=== PATIENT | female | born 1960 | race Caucasian/White ===

== ENCOUNTER 2024-11-23 18:39 | Inpatient (IN) | payer OTHER, SELFPAY ==
[2024-11-23] VITALS (24 sets, daily range): BP systolic 137–258; BP diastolic 72–126; BMI 34.6; BMI 33.7
[2024-11-23 11:17] LABS: Hematocrit 47.0 % (37.0-47.0); Hemoglobin 15.1 g/dL (12.0-16.0); INR 0.87; Mean Corp Hgb Conc. 32.1 g/dL (33.0-37.0); Mean Corpuscular Volume 81.5 fL (81.0-99.0); Nucleated Red Blood Cells % 0 %; PT 12.1 Sec (11.4-14.6); Platelet Count 204 10^3/uL (130-400); Red Cell Dist. Width 13.4 % (11.5-14.5)
[2024-11-23 11:18] LABS: APTT 25.3 Sec (23.4-35.0)
[2024-11-23 11:22] LABS: ALT (SGPT) 26 U/L (0-35); AST (SGOT) 25 U/L (14-36); Albumin 4.6 g/dl (3.5-5.0); Alkaline Phosphatase 122 U/L (38-126); Blood Urea Nitrogen 15 mg/dl (7-17); Calcium 9.9 mg/dl (8.4-10.2); Carbon Dioxide 26 mmol/L (22-30); Chloride 105 mmol/L (98-107); Glucose 110 mg/dl (70-99); Potassium 4.6 mmol/L (3.5-5.1); Sodium 138 mmol/L (135-145); Total Protein 7.7 g/dl (6.3-8.2); eGFR > 60.00
[2024-11-23 11:34] LABS: Troponin I 0.014 ng/ml
--- NOTE | 2024-11-23 11:35 | ED.CVA ---
ED Provider Triage
<Marco Headley MD, Resident - Last Filed: 11/23/24 15:50>
-
Patient seen by provider in Triage?: Seen in Triage
History of Present Illness
<Marco Headley MD, Resident - Last Filed: 11/23/24 15:50>
General
Chief Complaint: CVA/TIA Symptoms
Source: patient
Exam Limitations: none
Time Seen by Provider: 11/23/24 11:12
Onset of Stroke Symptoms
Onset of symptoms known: Yes
Date of onset of symptoms: 11/22/24
History of Present Illness
History of Present Illness:
64 Y Female with leg weakness, numbing, tingling that started in her left leg yesterday along with left arm, then spread to right leg today. Unable to ambulate. Associated with 1 episode vomiting today morning. No difficulty in understanding speech
or speech deficits, visual changes, chest pain, fever, chills, abdominal pain, diarrhea, headache. Not on blood thinners. PMH og HLD, HTN, and previous history of an CA.
Past History
<Marco Headley MD, Resident - Last Filed: 11/23/24 15:50>
Past History
ED Past Medical History: None
ED Past Surgical History: None
Social History
Tobacco: Non-smoker
Alcohol: Occasional
Drug: None
Personal:
Living: with family
Review of Systems
<Marco Headley MD, Resident - Last Filed: 11/23/24 15:50>
Review of Systems
All Other Systems: ROS reviewed and negative except as documented in HPI and ROS
Constitutional: Denies weight loss
Cardiac: Denies chest pain, diaphoresis, palpitations or syncope
Phy Exam
<Marco Headley MD, Resident - Last Filed: 11/23/24 15:50>
General Physical Exam
General Presentation: well appearing and no apparent distress
General age: appears stated age
General Skin: warm and dry
General Habitus: obese
General Mental: alert
Cardiovascular Exam
Cardiovascular Exam: regular rate/rhythm, no edema, no gallop, no JVD, no murmur and normal peripheral pulses
Pulmonary Exam
Pulmonary Exam: lungs clear and no respiratory distress
Gastrointestinal Exam
Gastrointestinal Exam: normal bowel sounds, non tender, soft and non distended
Neurological Exam
Neurological Exam: alert, oriented x3, CN II-XII intact, no motor deficits, normal reflexs, no sensory deficits, speech normal and abnormal gait (patient is unable to take 2 steps forward on her own without assistance, 4/5 strength left leg compared
to 5/5 right)
Musculoskeletal Exam
Musculoskeletal Exam: full ROM and other (Tingling on palpation of the bilateral lower extremities )
Course
<Marco Headley MD, Resident - Last Filed: 11/23/24 15:50>
Orders/Labs/Results
Orders:
Orders
11/23/24 10:30
Bedside Glucose- Treatment ONCE
11/23/24 10:36
Cardiovascular Evaluation Urgent
Complete Blood Count/With Diff Urgent
Comprehensive Metabolic Panel Urgent
Ferritin Urgent
Folate Urgent
Free T4 Urgent
Glycohemoglobin (HgbA1c) Urgent
PTT Urgent
Prothrombin Time Urgent
TSH Urgent
Troponin I Urgent
Vitamin B12 Urgent
11/23/24 11:30
Electrocardiogram (*1) Urgent
Reason for Study: TIA/Stroke
EKG- Treatment ONCE
11/23/24 13:11
NEUROLOGY CONSULT Urgent
Consulting Provider: Danny Ellington
Was physician already notified: Yes
COVID-19 Antigen Urgent
Source: Nasal Swab
Influenza A+B Rapid Molecular Urgent
JOSEPH Source: Nasal Swab
Specimen Description:
11/23/24 13:29
CT Head & Neck Angio W/wo IV Routine
Comment:
Reason For Exam: stenosis
11/23/24 13:37
Add On- LAB Routine
Tests Added?: folate, ferritin, TSH, free t4, B12, lipid panel, hg A1C
11/23/24 14:18
Prochlorperazine [Compazine] 10 mg IV NOW STA
Prochlorperazine [Compazine] 10 mg IV Q6HPRN PRN
11/23/24 14:44
Admit/Transfer Patient As Directed
Co-Sign Provider:
Level of Care: Observation services
Assign to:: Telemetry
Physician / Group: Ilda Beckman
Diagnosis: bilateral lower extremity weakness, numbness and tingling in right upper ex
Reason for Telemetry: CVA/TIA
Date to Stop Telemetry: 11/26/24
Time to Stop Telemetry: 11:00
11/23/24 14:45
PRN Pain Medication Management As Directed
May give lesser potent ordered pain med per pt: Yes
preference::
Protocol:: Medication orders for pain may be administered in a
manner that supports deferring to patient preference
when the pt is:
- Requesting an ordered lesser potent pain medication.
Least to most potent pain medications are defined
as: acetaminophen < NSAID < tramadol < opioids
(morphine, oxycodone, hydromorphone).
- Requesting a lesser dose of the same medication IF
ORDERED.
- Requesting a less intrusive route of administration
if both routes are prescribed by the provider (PO <
IV).
11/23/24 14:46
Code Status As Directed
Resuscitation Status: Full Code
11/23/24 14:52
Clopidogrel Bisulfate [Plavix] 300 mg PO NOW STA
11/23/24 15:08
Aspirin Chewable [Low Strength Aspirin] 81 mg PO NOW STA
Clopidogrel Bisulfate [Plavix] 75 mg PO NOW STA
11/23/24 15:21
Aspirin Chewable [Low Strength Aspirin] 243 mg PO NOW STA
11/23/24 15:22
Amlodipine [Norvasc] 5 mg PO NOW STA
11/23/24 15:26
MR Brain W/o & With Contrast Routine
Comment:
Reason For Exam: Sensation change left upper extremity drift
Recent pill cam endoscopy?: No
MR Cervical Spine Without & W Routine
Comment:
Reason For Exam: cervical myelopathy
Recent pill cam endoscopy?: No
11/26/24 11:00
DC Protocol for Telemetry ONCE
Abnormal Lab Results
11/23/24
10:36
RBC 5.77 H 10^6/uL
(4.20-5.40)
MCH 26.2 L pg
(27.0-31.0)
MCHC 32.1 L g/dL
(33.0-37.0)
MPV 13.3 H fL
(7.4-10.4)
Lymphocytes % 18.6 L %
(20.5-51.1)
Glucose 110 H mg/dl
(70-99)
Triglycerides 215 H mg/dl
(10-149)
Total Cholesterol 283 H mg/dl
(50-199)
VLDL Cholesterol, Calc 43 H mg/dl
(0-30)
11/23/24 10:36
11/23/24 10:36
Vital Signs
Initial and Last Documented VS:
Initial Vital Signs
Temp Pulse Resp BP Pulse Ox
97.7 F 70 18 168/110 97
11/23/24 10:23 11/23/24 10:23 11/23/24 10:23 11/23/24 10:23 11/23/24 10:23
Last Documented Vital Signs
Temp Pulse Resp BP Pulse Ox
97.7 F 64 17 181/98 98
11/23/24 10:23 11/23/24 12:15 11/23/24 12:15 11/23/24 12:00 11/23/24 12:15
<Salazar Pérez MD - Last Filed: 11/23/24 14:05>
Orders/Labs/Results
Orders:
Orders
11/23/24 10:30
Bedside Glucose- Treatment ONCE
11/23/24 10:36
Cardiovascular Evaluation Urgent
Complete Blood Count/With Diff Urgent
Comprehensive Metabolic Panel Urgent
Ferritin Urgent
Folate Urgent
Free T4 Urgent
Glycohemoglobin (HgbA1c) Urgent
PTT Urgent
Prothrombin Time Urgent
TSH Urgent
Troponin I Urgent
Vitamin B12 Urgent
11/23/24 11:30
Electrocardiogram (*1) Urgent
Reason for Study: TIA/Stroke
EKG- Treatment ONCE
11/23/24 13:11
NEUROLOGY CONSULT Urgent
Consulting Provider: Danny Ellington
Was physician already notified: Yes
COVID-19 Antigen Urgent
Source: Nasal Swab
Influenza A+B Rapid Molecular Urgent
JOSEPH Source: Nasal Swab
Specimen Description:
11/23/24 13:29
CT Head & Neck Angio W/wo IV Routine
Comment:
Reason For Exam: stenosis
11/23/24 13:37
Add On- LAB Routine
Tests Added?: folate, ferritin, TSH, free t4, B12, lipid panel, hg A1C
11/23/24 14:18
Prochlorperazine [Compazine] 10 mg IV NOW STA
Prochlorperazine [Compazine] 10 mg IV Q6HPRN PRN
11/23/24 14:44
Admit/Transfer Patient As Directed
Co-Sign Provider:
Level of Care: Observation services
Assign to:: Telemetry
Physician / Group: Ilda Beckman
Diagnosis: bilateral lower extremity weakness, numbness and tingling in right upper ex
Reason for Telemetry: CVA/TIA
Date to Stop Telemetry: 11/26/24
Time to Stop Telemetry: 11:00
11/23/24 14:45
PRN Pain Medication Management As Directed
May give lesser potent ordered pain med per pt: Yes
preference::
Protocol:: Medication orders for pain may be administered in a
manner that supports deferring to patient preference
when the pt is:
- Requesting an ordered lesser potent pain medication.
Least to most potent pain medications are defined
as: acetaminophen < NSAID < tramadol < opioids
(morphine, oxycodone, hydromorphone).
- Requesting a lesser dose of the same medication IF
ORDERED.
- Requesting a less intrusive route of administration
if both routes are prescribed by the provider (PO <
IV).
11/23/24 14:46
Code Status As Directed
Resuscitation Status: Full Code
11/23/24 14:52
Clopidogrel Bisulfate [Plavix] 300 mg PO NOW STA
11/23/24 15:08
Aspirin Chewable [Low Strength Aspirin] 81 mg PO NOW STA
Clopidogrel Bisulfate [Plavix] 75 mg PO NOW STA
11/23/24 15:21
Aspirin Chewable [Low Strength Aspirin] 243 mg PO NOW STA
11/23/24 15:22
Amlodipine [Norvasc] 5 mg PO NOW STA
11/23/24 15:26
MR Brain W/o & With Contrast Routine
Comment:
Reason For Exam: Sensation change left upper extremity drift
Recent pill cam endoscopy?: No
MR Cervical Spine Without & W Routine
Comment:
Reason For Exam: cervical myelopathy
Recent pill cam endoscopy?: No
11/26/24 11:00
DC Protocol for Telemetry ONCE
Abnormal Lab Results
11/23/24
10:36
RBC 5.77 H 10^6/uL
(4.20-5.40)
MCH 26.2 L pg
(27.0-31.0)
MCHC 32.1 L g/dL
(33.0-37.0)
MPV 13.3 H fL
(7.4-10.4)
Lymphocytes % 18.6 L %
(20.5-51.1)
Glucose 110 H mg/dl
(70-99)
Triglycerides 215 H mg/dl
(10-149)
Total Cholesterol 283 H mg/dl
(50-199)
VLDL Cholesterol, Calc 43 H mg/dl
(0-30)
11/23/24 10:36
11/23/24 10:36
Vital Signs
Initial and Last Documented VS:
Initial Vital Signs
Temp Pulse Resp BP Pulse Ox
97.7 F 70 18 168/110 97
11/23/24 10:23 11/23/24 10:23 11/23/24 10:23 11/23/24 10:23 11/23/24 10:23
Last Documented Vital Signs
Temp Pulse Resp BP Pulse Ox
97.7 F 64 17 181/98 98
11/23/24 10:23 11/23/24 12:15 11/23/24 12:15 11/23/24 12:00 11/23/24 12:15
<Marco Headley MD, Resident - Last Filed: 11/23/24 15:50>
MDM/Problems Addressed
Differential Diagnosis Includes:
Functional weakness, nutritional deficiency, electrolyte abnormality, transverse myelitis, demyelinating disease
MDM/Problems Addressed:
64 F presents with left upper extremity hand numbness, tingling and B/L lower extremity numbness, tingling, and inability to ambulate. Physical examination benign except neuro exam which shows inability to ambulate more than 2 feet, and
paraesthesia on palpation bilaterally. Vitals show elevated blood pressure of 181/98.
- CMP shows no electrolyte abnormalities
- CBC is unremarkable
- Troponin are normal
- EKG shows normal sinus rhythm
- CTA head/neck pending
- Neuro consulted
- Will admit to hospitalist service for CVA
<Marco Headley MD, Resident - Last Filed: 11/23/24 15:50>
*Pulse Oximetry
SaO2: 97
Oxygen Mode of Delivery: Room air
Patient hypoxic: no
*Critical Care Note
Total Time (30-74mins, 75-104mins- exclusive of procedures): Not Applicable
<Salazar Pérez MD - Last Filed: 11/23/24 14:05>
Patient Management
Discussion with other providers: Hospitalist (Discussed with hospitalist) and Lieutenant/Deputy (Discussed with neurologist)
Escalation/DeEscalation of care consider admission/obs:
Admission indicated
ED Attending Note
<Marco Headley MD, Resident - Last Filed: 11/23/24 15:50>
-
Portions of this chart may have been created with voice recognition software.� Occasional wrong word or��sound alike� substitutions may have occurred due to the inherent limitations of voice recognition software.
<Salazar Pérez MD - Last Filed: 11/23/24 14:05>
ED Attending Note
Patient seen and examined by attending physician: Yes
I performed a history and physical exam of patient and discussed management with resident, I reviewed resident's note and agree with documented findings and plan of care.: Yes
ED Attending Note:
I have seen and evaluated the patient with a [id number] encounter. I have spoken to the resident and involved in the medical history, the physical exam, medical decision making.
Evaluation and management service: agree unless noted differently below.
Results interpretation: agree unless noted differently below.
Focused HPI: 64-year-old female with a past medical history of hypertension (noncompliant with medications for about a month), CAD status post stenting who presents to the emergency department for evaluation of weakness. Patient reports that
symptoms started this past Saturday and have been constant and somewhat progressive since that time. She reports that prior to onset of symptoms she had a 24-hour bout of nausea with a few episodes of vomiting. She says that the next day she woke up
with weakness mainly in the left leg. She says that the next day she felt weakness had extended to the right leg but was still much worse on the left. Over the past 24 hours she has noticed some tingling and weakness in the arms as well also worse
on the left. She was concerned that this could potentially be stroke related and came to the ER for assessment. She has had a headache. She denies any chest pain, palpitations, shortness of breath. She denies any abdominal pain. She has not had
additional vomiting since initial a few episodes. She denies any diarrhea. No other acute complaints noted.
Physical exam: Awake and alert not in distress. Hypertensive but otherwise normal vitals. Cranial nerves are intact 2 through 12. Speech is fluid no dysarthria or aphasia. She does have some weakness on distal left upper extremity strength
testing 4/5; 5/5 strength proximally in the upper extremities and symmetric. On strength testing of the lower extremities she has some very subtle weakness on plantarflexion of the foot on the left 4+/5; 5/5 on the right. Sensory exam objectively
intact. She has no cardiac rubs gallops or murmurs and her lungs are clear bilaterally.
Medical Decision Makin-year-old female presents to the emergency room for evaluation of weakness she says in both legs as well as in the arms but much worse on the left side. Symptoms have been ongoing for the past few days. Here she is
markedly hypertensive in the setting of reported noncompliance with medications. Physical exam as above. She is well outside the window for tenecteplase and there is recent no CVA alert called but will proceed with CT head. Will check labs
including a CBC and a CMP. Check EKG. Discussed with neurology for consultation. Monitor closely reassess after the above.
Discharge Plan
Departure
Patient Disposition: Admit
Date of Disposition: 11/23/24
Time of Disposition: 14:01
Admit to doctor: Arianna
Presentation/result/management discussed w/ accepting MD/DO: Hospitalist
Discharge Problem:
Acute CVA (cerebrovascular accident)
Interventions
Interventions:
*Risk Screen - Suicide Last Done: 11/23/24 10:23
*General Assessment Last Done: 11/23/24 11:26
*Neglect/Abuse Screening Last Done: 11/23/24 11:26
ED- Pulmonary Assessment Last Done: 11/23/24 11:26
ED- Neurological Assessment Last Done: 11/23/24 11:26
ED- Cardiac Assessment Last Done: 11/23/24 11:26
ED Swallowing Screen Last Done: 11/23/24 11:26
--- NOTE | 2024-11-23 13:24 | CON.NEURO ---
Addendum entered and electronically signed by Danny Ellington MD 11/23/24 15:29:
Studies individually reviewed.
I have personally examined the patient. I reviewed and agree with the ATMOSPHERIC PHYSICIST's Note.
My addenda:
Awake, alert, interactive. No acute distress.
Speech intact.
Follows 2-step requests w/o difficulty. No tremor.
Extra-ocular movements grossly intact.
Facial movements full and symmetric. Hearing intact to normal conversational volume.
Normal UE movements bilaterally. Drift in the left upper extremity. Reflexes 3+ in bilateral lower extremities without clonus at ankles
Neck: full ROM.
Chest: no dyspnea
Heart: no JVD
Ext: (-) Clubbing, (-) Cyanosis, (-) Edema
IMPRESSIONS/RECOMMENDATIONS:
Abrupt onset of weakness in left lower extremity then left upper extremity then right lower extremity then sensation change in right hand
Differential diagnosis includes cervical myelopathy, Guillain-Manley syndrome
check MRI of brain with and without
check MRI of cervical spine with and without
Check blood work for potential metabolic causes
rehabilitation evaluations and treatment
Continue combined aspirin and clopidogrel due to the possibility of acute ischemic stroke although unclear
Initiate atorvastatin 80 mg daily in addition to the patient's usual rosuvastatin 40 mg daily due to LDL 179 with goal of less than 70 presuming possibility of ischemic lesion producing symptoms
D/W patient
All questions answered.
Will continue to follow patient.
Original Note:
Documented by User: Heaven Leger NP 11/23/24 15:21
Neuro Assessment/Plan
Assessment
64 year old female with past medical history significant for HTN, HLD, IA presented to [facility] on 11/23/2024 for evaluation of weakness.
CTA head and neck: pending
Labs: Cholesterol 283, LDL 179
Plan
-check MRI brain without contrast to evaluate for stroke
-check MRI cervical spine to check for structural abnormalities
-BP goal is normotension.
-start ASA 81mg and clopidogrel 75 mg daily
-check hemoglobin A1C. Goal is normoglycemia.
-current LDL 179 with goal <70, start atorvastatin 80 mg nightly
-PT/OT evaluations
-DVT prophylaxis
-continue neurochecks and NIHSS per unit guidelines
All questions encouraged and answered, plan of care discussed with Dr. Ellington, hospitalist and patient
Consultation
Order
Date of Consultation: 11/23/24
Requesting Provider: ED
Reason for Consult: b/l LE weakness
Subjective/Objective
Subjective Data
Date of Service: November 23, 2024
64 year old female with past medical history significant for HTN, HLD, IA presented to [facility] on 11/23/2024 for evaluation of weakness. Saturday at 11 am with leg weakness, numbing, tingling that started in her left leg, few hours later started to have
tingling then weakness to left arm, then spread to right leg last night around 10 pm. She states weakness in right leg not as severe as left leg. Also noted tingling in her right hand then weakness this morning mainly in her fingertips. She notes
she was unable to ambulate and ascend stairs this morning. Also noted difficulty with right hand dexterity. Had 1 episode of vomiting on Saturday. Notes headaches once a week, currently has headache with photophobia and nausea. Denies phonophobia.
Denies issues with speech or swallow, visual changes, chest pain, fever, chills, abdominal pain. Denies issues with bowel/bladder. Not on blood thinners. Currently on exam, she has LUE drift and hyperreflexia to upper and lower extremities.
Objective Data
Vital Signs
Temp Pulse Resp BP Pulse Ox
97.7 F 64 17 181/98 98
11/23/24 10:23 11/23/24 12:15 11/23/24 12:15 11/23/24 12:00 11/23/24 12:15
Lab Results
11/23/24 10:36
11/23/24 10:36
PT 12.1 Sec (11.4-14.6) 11/23/24 10:36
INR 0.87 11/23/24 10:36
APTT 25.3 Sec (23.4-35.0) 11/23/24 10:36
Sodium 138 mmol/L (135-145) 11/23/24 10:36
Potassium 4.6 mmol/L (3.5-5.1) 11/23/24 10:36
BUN 15 mg/dl (7-17) 11/23/24 10:36
Glucose 110 mg/dl (70-99) H 11/23/24 10:36
Calcium 9.9 mg/dl (8.4-10.2) 11/23/24 10:36
Patient Allergies
No Known Allergies Allergy (Verified 11/23/24 10:22)
CVA Assessment
Onset of Stroke Symptoms
Onset of symptoms known: Yes
Date of onset of symptoms: 11/22/24
Time of onset of symptoms: 11:00
Time pt last seen normal is known: No
NIH Stroke Score
Level of Consciousness: 0 - Alert
LOC Questions: 0-Answers both correctly
LOC Commands: 0-Performs both correctly
Best Horizontal Gaze: 0-Normal
Visual Scott: 0=Normal, no visual loss
Facial Palsy: 0=Normal, symmetrical
Motor - Right Arm: 0=No drift 10 seconds
Motor - Left Arm: 1=Drift < 10 seconds
Motor - Right Le-No drift 5 seconds
Motor - Left Le-No drift 5 seconds
Limb Ataxia: 0-Absent
Sensation: 0-Normal
Best Language: 0-No aphasia
Dysarthria: 0-Normal
Extinction and Inattention: 0-No abnormality
NIH Total Score:: 1
Tenecteplase Contraindications
Inclusion and Exclusion criteria reviewed: Yes
Reasons for NON-Tx with Thrombolytics ABSOLUTE Exclusions: Time-out of window
IAT Contraindications: >6 hrs from onset/last seen normal and NIHSS < 6
Modified [place] Score (MRS)
-
Modified Ghanshyam Scale (mRS): Moderately severe disability. Unable to attend to bodily needs/walk.
Score: 4
Physical Exam
-
General: No Apparent Distress and Comfortable
Eyes: No Ptosis and PERRLA
HEENT: Normocephalic, Atraumatic and Anicteric
Neck: Full Range of Motion
Respiratory: No Dyspnea
Cardiac: No JVD
GI: Non-distended
Skin: Unremarkable
Extremities: No Clubbing, No Cyanosis and No Edema
Psych: Unremarkable
Extended Neurological Exam
Mood & Affect: Mood Unremarkable
Attention Span & Concentration: Awake, Alert, Interactive and No Difficulty with 2 Step Request
Memory: Unremarkable
Tremor: Hand Tremor Absent and Head Tremor Absent
Speech: Quality Unremarkable, Quantity Unremarkable and Rate of Production Unremarkable
Cranial Nerve II: Left Eye: Visual Scott Intact
Cranial Nerve II: Right Eye: Visual Scott Intact
Cranial Nerves III, IV, : Extraocular Movement: Extraocular Movement Full in all Directions
Cranial Nerve V: Facial Sensation: Facial Sensation Unremarkable to Cold
Cranial Nerve VII: Facial Symmetry: Normal Facial Symmetry
Cranial Nerve VIII: Hearing: Unremarkable Hearing to Normal Conversational Volume
Cranial Nerve XI: Shoulder Shrug: Unremarkable
Muscle Strength, Overall: Reduced (4/5 to RUE, proximal weakness to b/l LEs)
Pronator Drift: Drift in Left Upper Extremity and No Drift in Lower Extremities
Deep Tendon Reflexes: Other (RUE/RLE hyperreflexic, LLE crossing)
Vibration Sensation: Unremarkable
Coordination: [id number] Testing Unremarkable and Reaches for Objects without Difficulty
Past History
Past History
ED Past Medical History: None
ED Past Surgical History: None
Family/Social History
Tobacco: Non-smoker
Alcohol: Occasional
Drug: None
Personal:
Living: with family

Documented by User: Marco Headley MD, Resident 11/23/24 15:08
CVA Assessment
NIH Stroke Score
NIH Total Score:: 1
Modified Ghanshyam Score (MRS)
-
Score: 4

Documented by User: Danny Ellington MD 11/23/24 15:21
CVA Assessment
NIH Stroke Score
NIH Total Score:: 1
Modified [place] Score (MRS)
-
Score: 4
[2024-11-23 13:55] LABS: COVID-19 Antigen Negative (Negative)
--- NOTE | 2024-11-23 14:03 | HPS.HSE ---
Addendum entered and electronically signed by Ilda Beckman MD 11/23/24 16:53:
I saw and examined the patient.
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
Comment:
64F HLD, HTN CAD presents for eval b/l LE weakness. Reports headache starting a few days ago followed by new onset left leg and arm weakness day prior to presentation. She was prompted to visit ED next day when she woke to bilateral lower
extremity weakness and in ability to stand without assistance. Weakness is associated with numbness and tingling in the RUE/hand. Denies ever having symptoms like this before. Reports non-compliance with her home medications, including
antihypertensives- reportedly running out of meds a few months ago. CT/CTA head/neck noted no significant acute abn's. ED eval noted hypertension systolic 180s, afebrile, stable respiratory status on room air. Labs also noted Hyperlipidemia and
low normal B12 level.
Physical Exam
General: No pallor, cyanosis, or jaundice.
HEENT: Throat clear. PERRLA Normocephalic atraumatic
NECK: Supple. No JVD Carotid Bruits
RESPIRATORY: Lungs clear to auscultation. No crackles wheezes stridor
CVS: S1, S2 normal. RRR. No murmur, rub or gallop.
ABDOMEN: Soft, non-tender. No distension. BS+/normal.
EXTREMITIES: No peripheral cyanosis or edema.
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 able to move all ext's spontaneously.
#Possible Stroke, out of window for TPA
#Hypertensive Urgency
#Low Normal B12 Level
#Neuropathy
Monitor on Telemetry
Neuro Eval Appreciated check brain/neck MRI
ASA Plavix statin
goal normotension but given likely longstanding hypertension/noncompliance, avoid correcting too fast
home antihypertensives resumed at reduced doses Amlodipine 5 mg daily Lisinopril 10 mg daily with holding parameters, Metoprolol XL 25 mg BID w/ holding parameters
PT/OT
IV Hydralazine prn SBP>140 or DBP>100
Original Note:
Family Physician
-
Family Physician: Macario Rg
Chief Complaint
-
bilateral lower extremity weakness
History of Present Illness
Patient is a 64-year-old female with past medical history significant for hyperlipidemia, hypertension and CAD who presented to [facility] ED for evaluation of bilateral lower extremity weakness. Patient reports that Saturday afternoon she began with a
headache that has been intermittent ever since, yesterday Saturday11/22/2024 she reported left leg weakness and left arm weakness and heavy feeling. She stated she compensated yesterdays weakness on the left by using more of her right side. She woke
this AM and had bilateral lower extremity weakness and in ability to stand without assistance. She states this weakness is associated with numbness and tingling in the right upper extremity and hand and mild nausea. Denies any recent travel, fever,
chills, cough, shortness of breath, chest pain, palpitations, vomiting, constipation, dairrhea or urinary symptoms.
Medical History
Past Medical History
Past Medical History: Reports Other
Additional Past Medical History:
hypertension
hyperlipidemia
CAD
Past Surgical History: Reports Other
Additional Past Surgical History:
cardiac cath with stent placement
Social History
Tobacco: Non-smoker
Alcohol: Occasional (rare)
Drug: None
Personal: Partner
Living: With Roomate (with boyfriend )
Family History
Family History: Other (Mother: ALS )
Allergies / Home Medications
Allergies reflects when Allergies were last updated in [employer].
Home Medications with original date entered in [employer]
Allergy/Medication List:
Allergies
Allergy/AdvReac Type Severity Reaction Status Date / Time
No Known Allergies Allergy Verified 11/23/24 10:22
Home Medications
aspirin 81 mg tablet,delayed release 81 mg PO DAILY 11/23/24
Review of Systems
-
History Source: Patient
Constitutional: Denies Fever or Chills
EENT: Denies Sore Throat or Runny Nose
Respiratory: Denies Cough, Hemoptysis or Trouble Breathing
Cardiac: Denies Chest Pain, Diaphoresis, Palpitations or Syncope
Abdomen/GI: Reports Nausea; Denies Abdominal Pain, Vomiting, Diarrhea or Constipated
: Denies Dysuria, Frequency or Urgency
Musculoskeletal: Denies Joint Pain or Joint Swelling
Skin: Denies Rash
Neurological: Reports Headache (intermittent since Saturday), Weakness (bilateral lower extremities currently ) and Numbness (currently in right upper extremity ); Denies Dizzy
Physical Exam
Vital Signs
Vital Signs
Temp Pulse Resp BP Pulse Ox
97.7 F 64 17 181/98 98
11/23/24 10:23 11/23/24 12:15 11/23/24 12:15 11/23/24 12:00 11/23/24 12:15
Physical Exam
General: Well Developed, Well Nourished, Comfortable, Conversant and Obese
HEENT: NormoCephalic, Moist mucous membranes, Atraumatic, PERRLA, [place] Conjunctivae, Nose Appears Normal and Ears Appear Normal
Respiratory: Clear and Non Labored Respirations; No Wheezes, Rales or Rhonchi
Cardiac: S1/S2 and Regular Rhythm; No Murmur, Rub or Gallop
Breast: Deferred by me
GI: Soft, Non Tender, Non Distended and Normal Bowel Sounds; No Organomegaly
Rectal: Deferred by Provider
Genito-urinary: Deferred by me
Musculoskeletal: No Clubbing, No Cyanosis and No Edema
Skin: Warm and IV/Catheter Site; No Rash
Neuro: Awake, AO x 3 and Nonfocal/grossly intact; No Facial Droop or Tremors
Hematologic/Lymphatic: No Lymphadenopathy
Psych: Intact Judgment/Insight and Anxious
Laboratory Results
-
11/23/24 10:36
11/23/24 10:36
Laboratory Results
PT 12.1 Sec (11.4-14.6) 11/23/24 10:36
INR 0.87 11/23/24 10:36
APTT 25.3 Sec (23.4-35.0) 11/23/24 10:36
Total Bilirubin 0.6 mg/dl (0.2-1.3) 11/23/24 10:36
AST 25 U/L (14-36) 11/23/24 10:36
ALT 26 U/L (0-35) 11/23/24 10:36
Alkaline Phosphatase 122 U/L (38-126) 11/23/24 10:36
Troponin I 0.014 ng/ml 11/23/24 10:36
Data Reviewed
-
Medical Tests (Nuc Med, Echo, EKG etc): Report Reviewed by me (EKG: NORMAL SINUS RHYTHM MINIMAL VOLTAGE CRITERIA FOR LVH, MAY BE NORMAL VARIANT ( Julien product ) NONSPECIFIC T WAVE ABNORMALITY)
Lab Data: Labs Reviewed by me
Impression/Plan
-
IMPRESSION/PLAN:
#bilateral lower extremity weakness, numbness and tingling in right upper extremity 2/2 CVA/TIA vs. demyelinating disease vs. trauma vs. electrolyte abnormalities
EKG: NORMAL SINUS RHYTHM
MINIMAL VOLTAGE CRITERIA FOR LVH, MAY BE NORMAL VARIANT ( Julien product )
NONSPECIFIC T WAVE ABNORMALITY
Head/Neck CTA: pending
- Admit to telemetry
- Consult Neurology
- MRI brain and neck per neurology
- NIH and neuro checks per protocol
- Start aspirin and Plavix
- PRN hydralazine with goal of normotensive
#hypertension
#hyperlipidemia
#CAD
*patient reports running out of medications for hyperlipidemia, hypertension and a anticoagulant approximately 30-60 days ago, called primary team today to request refills. Pharmacy attempting to confirm what previous regimen was.*
Code status: full code
DVT Prophylaxis: SCDs
[2024-11-23 14:20] LABS: HDL Cholesterol 61 mg/dl; LDL Cholesterol, Calculated 179 mg/dl; Very Low Density Lipoprotein 43 mg/dl (0-30)
[2024-11-23 14:54] LABS: TSH 1.27 uIU/ml (0.47-4.68)
[2024-11-23 14:55] LABS: Ferritin 71.0 ng/ml (11.1-264.0)
[2024-11-23] MEDS: COMPAZINE 10 MG IV ×2 (14:59→17:49)
[2024-11-23 15:27] LABS: Folate 13.7 ng/ml (2.76-20); Vitamin B12 368 pg/ml (239-931)
[2024-11-23] MEDS: NORVASC 5 MG PO (15:37)
[2024-11-23] MEDS: LOW STRENGTH ASPIRIN 243 MG PO (15:37)
[2024-11-23] MEDS: PLAVIX 300 MG PO (15:37)
[2024-11-23] MEDS: APRESOLINE 5 MG IV (17:32)
[2024-11-23] MEDS: LIPITOR 80 MG PO (17:35)
[2024-11-23 17:58] LABS: Glucose - Point of Care 99 mg/dl (70-99)
[2024-11-23] MEDS: TYLENOL 1000 MG PO (18:34)
[2024-11-23] MEDS: ZESTRIL 10 MG PO (18:41)
--- NOTE | 2024-11-23 18:41 | W.PN.UPDATE ---
Update Note
Progress Note Update
Patient hypertensive systolic 200s diastolic 100s unable to get comfortable
reporting chest discomfort/palpitations despite regular heart rate. EKG NSR, troponin pending
reports lower ext cramping/muscle spasms, RLE pain. Started baclofen 2.5 mg TID
possible adverse rxn IV hydralazine, discontinued in favor of prn IV labetalol
Home lisinopril restarted at reduced dose 10 mg daily now
Transferring to ICU d/t concern hypertensive emergency, cardene gtt ordered for goal BP<180/105
[2024-11-23 18:45] LABS: Troponin I 0.016 ng/ml
[2024-11-23] MEDS: TRANDATE 10 MG IV (19:16)
[2024-11-23] MEDS: LIORESAL 2.5 MG PO ×2 (19:16→21:19)
--- NOTE | 2024-11-23 19:35 | PTCARENOTE ---
Rec'd pt from floor RN via stretcher, [facility] completed w/ floor RN- result NIH-1 , has left arm weakness, c/o left hand, left foot & R finger numbness/ tingling;oriented x3, oriented to ICU routine, CHG bath done on adm, SR, cardene gtt started at 193
at 2.5 mg, to keep BP< 1808/105- see flow sheet for titrations, weak distal pulses, no edema, skin warm/dry, c/o left leg cramps/spasms- Gerri Figueredo NP aware, 2 mg leela IV given at 2014- w/ partial relief, RA, lungs clear, sat 96, + bowel sounds, no
bm, abd obese, soft, no n/v, mary grace fluids, purewick in place=- voided yellow urine
[2024-11-23] MEDS: CARDENE 200 IV (19:38)
--- NOTE | 2024-11-23 19:55 | PTCARENOTE ---
Pt received from ER at approx 1645. Ambulated to bed from stretcher, unsteady gait. Tele in place - SR in 60s-70s. BP upon admission 223/123. PRN hydralazine adminsitered. NIH conducted - scored 2 for L arm weakness and L arm ataxia. Pt
warm/sweating but afebrile. Rectal 97.8. Pt c/o feeling of heart racing and like she's having a heart attack. EKG done - SR in 60s. BP remains high in 200s/100s. TT to Dr. Beckman who came to room immediately. Trop and BNP drawn. Tylenol and Baclofen
ordered for c/o L leg spasms. BP still remaining high despite lisinopril. Ordered cardene gtt and transfer to ICU. Pt transferred at 1930, report given to receiving nurse, JEFFERY done bedside. All personal belongings intact.
[2024-11-23] MEDS: TOPROL XL 25 MG PO (20:11)
[2024-11-23] MEDS: VALIUM INJECTION 2 MG IV (20:16)
[2024-11-23 20:17] LABS: Magnesium 1.9 mg/dl (1.6-2.3)
[2024-11-23 20:59] LABS: Urine Character Clear (Clear)
[2024-11-23 21:05] LABS: Urine Squamous Cell >30 /LPF (Few)
[2024-11-23 21:06] LABS: Urine Red Blood Cell 0-2 /HPF (0-2)
[2024-11-23 21:10] LABS: Glucose - Point of Care 137 mg/dl (70-99)
[2024-11-23] MEDS: MAGNESIUM OXIDE 400 MG PO (22:01)
--- NOTE | 2024-11-23 22:02 | PTCARENOTE ---
400 mg mag oxide po given as ordered
[2024-11-24] VITALS (66 sets, daily range): BP systolic 110–193; BP diastolic 71–138; PULSE 95; O2SAT 96; BMI 33.5
--- NOTE | 2024-11-24 00:20 | PTCARENOTE ---
sys reviewed, changes noted
[2024-11-24] MEDS: TRANDATE 10 MG IV (00:54)
--- NOTE | 2024-11-24 00:55 | PTCARENOTE ---
llabetolol 10 mg iv given for bp
[2024-11-24 03:08] LABS: Hematocrit 45.3 % (37.0-47.0); Hemoglobin 14.9 g/dL (12.0-16.0); Mean Corp Hgb Conc. 32.9 g/dL (33.0-37.0); Mean Corpuscular Volume 79.1 fL (81.0-99.0); Platelet Count 212 10^3/uL (130-400); Red Cell Dist. Width 13.5 % (11.5-14.5)
[2024-11-24 03:23] LABS: Blood Urea Nitrogen 14 mg/dl (7-17); Calcium 10.1 mg/dl (8.4-10.2); Carbon Dioxide 22 mmol/L (22-30); Chloride 106 mmol/L (98-107); Estimated Creatinine Clearance 87 ml/min; Glucose 137 mg/dl (70-99); Magnesium 2.2 mg/dl (1.6-2.3); Potassium 4.3 mmol/L (3.5-5.1); Sodium 139 mmol/L (135-145); eGFR > 60.00
--- NOTE | 2024-11-24 03:28 | PTCARENOTE ---
sys reviewed, no numbness /tingling of feet / fingers or hands, no leg cramps
[2024-11-24 03:35] LABS: Troponin I 0.016 ng/ml
[2024-11-24] MEDS: CARDENE 200 IV (04:54)
--- NOTE | 2024-11-24 08:00 | PTCARENOTE ---
Assumed care of pt at 0715 following shift report. Pt awake and sitting up in bed. Ox3, following commands and all conversation appropraite. Denies c/o pain, SOB, nausea. NIHSS assessment completed w/ outgoing shift RN- see work list documentation.
Cardene gtt infusing at 5mg/hr to maintain BP < 180/105. Assisted in ordering breakfast. Call gale w/in pt reach and safe environment maintained.
[2024-11-24] MEDS: NORVASC 5 MG PO (08:02)
[2024-11-24] MEDS: LIORESAL 2.5 MG PO ×3 (08:03→21:57)
[2024-11-24] MEDS: PLAVIX 75 MG PO (08:03)
[2024-11-24] MEDS: TOPROL XL 25 MG PO (08:03)
[2024-11-24] MEDS: ASPIR LOW (ENTERIC COATED) 81 MG PO (08:03)
[2024-11-24] MEDS: VITAMIN B-12 1000 MCG PO (08:03)
[2024-11-24] MEDS: ZESTRIL 10 MG PO ×2 (08:03→11:49)
--- NOTE | 2024-11-24 08:15 | W.PN.HOSP.TC ---
Today's Communication/Plan
-
wean cardene gtt as tolerated, possible downgrade later today if able to wean off
Brain and Neck MRI as per Neuro
asa plavix
blood pressure control, amlodipine titrated back up to 10 mg daily
Cardio eval requested
Assessment / Plan
Assessment / Plan
Physical Exam
General: No pallor, cyanosis, or jaundice.
HEENT: Throat clear. PERRLA Normocephalic atraumatic
NECK: Supple. No JVD Carotid Bruits
RESPIRATORY: Lungs clear to auscultation. No crackles wheezes stridor
CVS: S1, S2 normal. RRR. No murmur, rub or gallop.
ABDOMEN: Soft, non-tender. No distension. BS+/normal.
EXTREMITIES: No peripheral cyanosis or edema.
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 able to move all ext's spontaneously. 4/5 strength Lt ext's 5/5 strength Rt ext's
64F HLD, HTN CAD presents for eval b/l LE weakness. Reports headache starting a few days ago followed by new onset left leg and arm weakness day prior to presentation. She was prompted to visit ED next day when she woke to bilateral lower
extremity weakness and in ability to stand without assistance. Weakness is associated with numbness and tingling in the RUE/hand. Denies ever having symptoms like this before. Reports non-compliance with her home medications, including
antihypertensives- reportedly running out of meds a few months ago. CT/CTA head/neck noted no significant acute abn's. ED eval noted hypertension systolic 180s, afebrile, stable respiratory status on room air. Labs also noted Hyperlipidemia and
low normal B12 level. Following admission, patient was soon transferred to ICU due to concerns Hypertensive emergency systolic 200s, since improved with Cardene gtt.
#Left sided weakness, lower ext weakness Left>Right, paraesthesia lower ext's, muscle cramping
#Eval for Possible CVA
#Hypertensive Emergency
#Hx CAD stent
#noncompliance off medications for past few months
Head/Neck CTA: appreciated no acute abn's
- Admitted to telemetry soon transferred to ICU d/t concerns hypertensive emergency
- BP improved on Cardene gtt, wean off as toelrated
- Consult Neurology appreciated
- pending MRI brain and neck
- NIH and neuro checks per protocol
- loaded with aspirin and Plavix, cont daily maintenance doses
- PRN hydralazine discontinued in favor of prn Labetalol (concern patient felt worse after IV hydralazine)
- Ambulette Driver eval appreciated
- Cardio eval requested
#hypertension
resumed at reduced dose home Amlodipine 5 mg daily and lisinopril 10 mg daily w/ holding parameters
reduced doses to avoid overcorrection likely longstanding uncontrolled HTN
Amlodipine titrated back up to home dose 10 mg daily
Cardene gtt and Cardio eval as above
#hyperlipidemia
#CAD stent placed 2016 as per patient
ASA Plavix as above
statin
Code status: full code
DVT Prophylaxis: SCDs
Total Critical Care Time_45__ minutes. I was immediately available to the patient and staff. I personally examined, reviewed labs, diagnostic images/reports, interpretations, treatment plans, discussed patient care with other providers and
patient, entered orders as appropriate and documented the medical record.
Anticipated Discharge: > 48 hours
Subjective/Interval History
-
Date of Service: November 24, 2024
Seen and examined at bedside in no acute distress resting comfortably in bed. Reports feeling significantly better this morning, denies current pain/discomfort. Left side continues to feel week.
Objective Data
-
Labs:
Laboratory Results
11/24/24
02:48
WBC 11.0 H
Hgb 14.9
Hct 45.3
Plt Count 212
Sodium 139
Potassium 4.3
Chloride 106
Carbon Dioxide 22
BUN 14
Creatinine 0.7
Glucose 137 H
Calcium 10.1
Vital Signs:
Vital Signs
Temp Pulse Resp BP Pulse Ox
98.1 F 87 18 148/97 94
11/24/24 03:12 11/24/24 08:02 11/24/24 06:30 11/24/24 08:03 11/24/24 06:30
I&O
11/23/24 11/24/24 11/25/24
06:59 06:59 06:59
Intake Total 300.0 / 325.0 50 / 50
Output Total 900 / 1150 250 / 250
Balance -600.0 / -825.0 -200 / -200
--- NOTE | 2024-11-24 08:36 | CON.INTV ---
Consultation
Consultation Request
Date/Time Consultation Requested: 11/23/24 18:57
Date/Time Consultation Performed: 11/24/24 08:00
Requesting Provider: Ilda Beckman MD
Performing Provider: Evgeny Villarreal DO (Resident); Shmuel Menard MD
Reason for Consultation: Hypertensive Emergency
Medical History
-
Chief Complaint: Focal Neurologic Weakness
History of Present Illness:
Erika Bill is a 64F w/ PMHx of HLD, HTN, CAD (s/p stent in 2016), family hx of ALS, and medication noncompliance x 2 months who presented to the emergency department yesterday with weakness. Patient states that the history of present illness
started with intermittent headache that started 4 days ago and a 24-hour bout of nausea and NBNB vomiting. Intermittent headache continued but the vomiting resolved. 2 days ago, patient was walking around a flea market with her friend when
discharge noticed that her left lower extremity started become weak. Patient stated the weakness caused her to have difficulty to walk so she returned home. She did not take any medications for the symptoms. Around same time, patient also
worsened noticed tingling in her left upper extremity. She did not seek medical attention and went to bed. Yesterday morning, patient noticed that she now had bilateral upper extremity tingling (left worse than right) and bilateral lower extremity
weakness (left worse than right). Mild intermittent headaches at the base of the occiput continued through this time period. Of note, patient mentions that she has not taken her prescription medications for the last 2 months. These include
amlodipine, lisinopril, rosuvastatin, low-dose aspirin, and metoprolol. Otherwise, she denies fevers, chills, cough, shortness of breath, chest pain, palpitations, urinary symptoms.
ED COURSE: Upon arrival to the emergency department patient was markedly hypertensive and exhibited an abnormal gait. She seemed to have 4/5 left lower extremity strength. CBC was unremarkable, CMP was unremarkable, and troponin was negative X1.
Her tox cream was positive for methamphetamines and marijuana. Head/neck CTA was negative for intracranial pathology, or large vessel occlusion, dissection, or stenosis. Additionally, she was seen by neurology in the emergency department and given
possibility of acute ischemic stroke, patient was started on DAPT/statin and MRI imaging of the brain and cervical spine were ordered.
HOSPITAL COURSE: Patient admitted for neurochecks and treatment of hypertension. Her home antihypertensives were restarted at reduced doses (amlodipine 5 mg daily, lisinopril 10 mg daily, metoprolol 25 mg twice daily) wirh as needed IV hydralazine.
Last evening, BP was markedly elevated with SBP's in the 200s and diastolics in the 100s. Patient was experiencing subjective chest discomfort and palpitations with lower extremity cramps and spasms. EKG was NSR and repeat troponins were negative
x 2. Patient was transferred to the emergency department for IV Cardene in the setting of hypertensive emergency.
Patient states that she feels better this morning. She notes that she has clammy skin however notes improvement in the tingling in her arms. She does not know about her lower extremity weakness because she has not been up and walking. She denies
any chest pain, shortness of breath, palpitations, changes in urination, visual changes. She does note a lingering mild headache in the base of the occiput.
Allergies / Home Medications
Allergies
Allergy/AdvReac Type Severity Reaction Status Date / Time
No Known Allergies Allergy Verified 11/23/24 10:22
Home Medications
�Medication �Instructions �Recorded �Confirmed �Last Taken �Type
amlodipine 10 mg tablet 10 mg PO DAILY Blood Pressure 11/23/24 11/23/24 Unknown History
aspirin 81 mg tablet,delayed 81 mg PO DAILY Blood Clot 11/23/24 11/23/24 11/23/24 History
release Prevention/Tx
clopidogrel 75 mg tablet (Plavix) 75 mg PO DAILY Blood Clot 11/23/24 11/23/24 Unknown History
Prevention/Tx
lisinopril 20 mg tablet 20 mg PO DAILY Blood Pressure 11/23/24 11/23/24 Unknown History
metoprolol succinate 25 mg 25 mg PO BID Blood Pressure 11/23/24 11/23/24 Unknown History
tablet,extended release 24 hr
(Toprol XL)
rosuvastatin 40 mg tablet (Crestor) 40 mg PO DAILY High Cholesterol 11/23/24 11/23/24 Unknown History
Review of Systems
-
History Source: Patient
All other systems: Negative unless noted
Vitals / Labs / Diagnostic Testing
Vital Signs
Temp Pulse Resp BP Pulse Ox
97.9 F 81 18 165/92 95
11/24/24 08:25 11/24/24 08:15 11/24/24 08:15 11/24/24 08:15 11/24/24 08:15
Lab Data
11/24/24 02:48
11/24/24 02:48
Laboratory Results
11/23/24
10:36
PT 12.1
INR 0.87
APTT 25.3
Microbiology
11/23/24 13:11 Nasal Swab Influenza Types A & B (CLOTILDE) - Final
Negative for Influenza A & B, NAAT
Negative results must be combined with clinical observations
and patient history.
Nucleic Acid Amplification test (NAAT)performed on the
[employer] platform.
Diagnostic Testing:
CTA HEAD/NECK (11/23):
1. No acute intracranial abnormality.
2. No large vessel occlusion or dissection. No aneurysm appreciated.
3. Mild to moderate calcified plaque within both carotid bulbs and proximal ICAs. No significant stenosis.
CXR 11/23
No acute cardiopulmonary process.
Physical Exam
-
HEENT: Normocephalic and Anicteric
Cardiovascular: S1/S2, Regular Rhythm and Other (no m/r/g, no carotid bruit, no lower extremity edema, no calf tenderness)
Respiratory: Clear, Non-Labored Respirations and Other (no wheezing, no rales, no rhonchi)
Neurology: Awake, Alert, AO x 3 and Other (4/5 muscle strength in the upper and lower extremity, speech is normal, no facial droop, CN2-12 grossly intact)
Skin: Other (clammy)
General: Comfortable
Assessment
-
Erika Bill is a 64 F PMHx HLD, HTN, CAD (s/p stent in 2016), family hx of ALS, and medication noncompliance x 2 months who presented to the emergency department yesterday with focal neurologic deficits including weakness of the bilateral lower
extremities (L > R) and tingling in the bilateral upper extremities as well as marked hypertension on admission, with eventual development of hypertensive emergency. She was admitted to the ICU for nicardipine drip. DDx includes ischemic CVA,
embolic CVA, PRES, initial presentation of hereditary neurologic disease.
ASSESSMENT
Hypertensive Emergency
Focal Neurological Deficit
Amphetamine Positive UDS
Marijuana Positive UDS
Suboccipital Headache
PLAN
Cardiovascular
- Continue antihypertensives and Nicardipine drip to goal BP
- Hold metoprolol in the setting of amphetamine positivity to avoid unopposed alpha-1 agonism
- In the setting of stroke workup, goal BP of 180/110 until CVA has been ruled out
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
- Agree with DAPT for now
- Resume statin
Neuro
- Await MRI results
- Neurochecks
- Appreciate Neuro
GI
- Cholesterol Lowering Diet
- Daily BMPs
Heme
- Start Heparin 5000u SC q8h
Data Reviewed
-
EKG: Tracing personally visualized and interpreted and Report reviewed by me
Radiology: Image personally visualized and interpreted and Report reviewed by me
CT Scan: Report reviewed by me
Labs: Labs reviewed by me
Total Time Spent with Patient (in minutes): 35
--- NOTE | 2024-11-24 08:57 | W.PN.NEURO.1 ---
Addendum entered and electronically signed by Danny Ellington MD 11/24/24 13:33:
Studies individually reviewed.
I have personally examined the patient. I reviewed and agree with the FREIGHT AND PASSENGER AGENT's Note.
My addenda:
Awake, alert, interactive. No acute distress.
Speech intact.
Follows 2-step requests w/o difficulty. No tremor.
Extra-ocular movements grossly intact.
Facial movements full and symmetric. Hearing intact to normal conversational volume.
Drift in the left upper extremity.
Neck: full ROM.
Chest: no dyspnea
Heart: no JVD
Ext: (-) Clubbing, (-) Cyanosis, (-) Edema
IMPRESSIONS/RECOMMENDATIONS:
Abrupt onset of weakness in left lower extremity then left upper extremity then right lower extremity then sensation change in right hand, followed by hypertensive urgency and tachycardia
Differential diagnosis includes migraine with aura, cervical myelopathy, Guillain-[place] syndrome
check MRI of brain with and without
check MRI of cervical spine with and without
Check blood work for potential metabolic causes
Continue combined aspirin and clopidogrel due to the possibility of acute ischemic stroke although unclear
Initiated atorvastatin 80 mg daily in addition to the patient's usual rosuvastatin 40 mg daily due to LDL 179 with goal of less than 70 presuming possibility of ischemic lesion producing symptoms
D/W patient
All questions answered.
Will continue to follow patient.
Original Note:
Documented by User: Heaven Leger NP 11/24/24 10:12
Today's Communication / Plan
-
-check MRI brain without contrast to evaluate for stroke
-check MRI cervical spine to check for structural abnormalities
-BP goal is normotension.
-continue ASA 81mg and clopidogrel 75 mg daily
-current LDL 179 with goal <70, continue atorvastatin 80 mg nightly
-PT/OT evaluations
-give prochlorperazine for headache treatment
Neuro Assessment/Plan
Assessment
64 year old female with past medical history significant for HTN, HLD, [place] presented to [facility] on 11/23/2024 for evaluation of weakness.
CTA head and neck:
1. No acute intracranial abnormality
2. No large vessel occlusion or dissection. No aneurysm appreciated.
3. Mild to moderate calcified plaque within both carotid bulbs and proximal ICAs. No significant stenosis.
Labs: Cholesterol 283, LDL 179
Plan
-check MRI brain without contrast to evaluate for stroke
-check MRI cervical spine to check for structural abnormalities
-BP goal is normotension.
-continue ASA 81mg and clopidogrel 75 mg daily
-current LDL 179 with goal <70, continue atorvastatin 80 mg nightly
-PT/OT evaluations
-give prochlorperazine for headache treatment
All questions encouraged and answered, plan of care discussed with Dr. Ellington, nurse and patient
Subjective/Objective
Subjective Data
Date of Service: November 24, 2024
Patient became hypertensive and started on Cardene drip transferred to ICU. States she feels better today. Symptoms have improved and notes less weakness and tingling. Notes a little bit of a headache in the back of her head this morning that
started shortly after breakfast.
Objective Data
Vital Signs
Temp Pulse Resp BP Pulse Ox
97.9 F 81 18 165/92 95
11/24/24 08:25 11/24/24 08:15 11/24/24 08:15 11/24/24 08:15 11/24/24 08:15
Lab Results
11/24/24 02:48
11/24/24 02:48
PT 12.1 Sec (11.4-14.6) 11/23/24 10:36
INR 0.87 11/23/24 10:36
APTT 25.3 Sec (23.4-35.0) 11/23/24 10:36
Sodium 139 mmol/L (135-145) 11/24/24 02:48
Potassium 4.3 mmol/L (3.5-5.1) 11/24/24 02:48
BUN 14 mg/dl (7-17) 11/24/24 02:48
Glucose 137 mg/dl (70-99) H 11/24/24 02:48
Calcium 10.1 mg/dl (8.4-10.2) 11/24/24 02:48
Phosphorus 4.1 mg/dl (2.5-4.5) 11/24/24 02:48
Bps-B-Wwptbssgsuh Pept Cancelled 11/23/24 18:12
LDL Cholesterol, Calc 179 mg/dl 11/23/24 10:36
Vitamin B12 368 pg/ml (239-931) 11/23/24 10:36
Ur Buprenorphine Negative (Negative) 11/23/24 20:49
Patient Allergies
No Known Allergies Allergy (Verified 11/23/24 10:22)
Physical Exam
-
General: No Apparent Distress and Comfortable
Eyes: No Ptosis and PERRLA
HEENT: Normocephalic, Atraumatic and Anicteric
Neck: Full Range of Motion
Respiratory: No Dyspnea
Cardiac: No JVD
GI: Non-distended
Skin: Unremarkable
Extremities: No Clubbing, No Cyanosis and No Edema
Psych: Unremarkable
Extended Neurological Exam
Mood & Affect: Mood Unremarkable
Attention Span & Concentration: Awake, Alert, Interactive and No Difficulty with 2 Step Request
Memory: Unremarkable
Tremor: Hand Tremor Absent and Head Tremor Absent
Speech: Quality Unremarkable, Quantity Unremarkable and Rate of Production Unremarkable
Cranial Nerve II: Left Eye: Visual Scott Intact
Cranial Nerve II: Right Eye: Visual Scott Intact
Cranial Nerves III, IV, : Extraocular Movement: Extraocular Movement Full in all Directions
Cranial Nerve V: Facial Sensation: Facial Sensation Unremarkable to Cold
Cranial Nerve VII: Facial Symmetry: Normal Facial Symmetry
Cranial Nerve VIII: Hearing: Unremarkable Hearing to Normal Conversational Volume
Cranial Nerve XI: Shoulder Shrug: Unremarkable
Muscle Strength, Overall: Full Throughout
Pronator Drift: Drift in Left Upper Extremity and No Drift in Lower Extremities
Deep Tendon Reflexes: Other (RUE/RLE hyperreflexic, LLE crossing)
Vibration Sensation: Unremarkable
Coordination: Wzbytf-auvx-wfbqgh Testing Unremarkable and Reaches for Objects without Difficulty
Data Reviewed
-
CT-A: Image Reviewed
CT Head: Report Reviewed and Image Reviewed
MRI Head: Ordered
Medical Test Reports: Report Reviewed
Labs: Report Reviewed
Lipid Profile: Report Reviewed
HgbA1C: Report Reviewed
Reviewed with: Physician, Nurse and Patient
Old Records: Summarized

Documented by User: Danny Ellington MD 11/24/24 13:30
Past History
Past History
ED Past Medical History: HTN and Hypercholesterolemia
ED Past Surgical History: None
Social History
Tobacco: Non-smoker
Alcohol: Occasional
Drug: None
Personal:
Living: with family
Family History
Family History: Other (Reviewed and noncontributory)
Medications
-
Medications:
Generic Name Dose Route Start Last Admin
Trade Name Freq PRN Reason Stop Dose Admin
Acetaminophen 650 mg 11/23/24 16:34 11/24/24 12:48
Acetaminophen 325 Mg Tablet PO 12/21/24 16:33 650 mg
Q4HPRN PRN Administration
mild pain/CHRISTIAN/temp> 100.4F
Amlodipine Besylate 10 mg 11/24/24 08:59
Amlodipine 5 Mg Tablet PO 12/22/24 07:59
DAILY KEITH
Aspirin 81 mg 11/24/24 08:00 11/24/24 08:03
Aspirin 81 Mg (Enteric Coated) Tablet PO 12/22/24 07:59 81 mg
DAILY KEITH Administration
Atorvastatin Calcium 80 mg 11/23/24 18:00 11/23/24 17:35
Atorvastatin (Lipitor) 80 Mg Tablet PO 12/21/24 17:59 80 mg
QPM KEITH Administration
Baclofen 2.5 mg 11/23/24 23:00 11/24/24 08:03
Baclofen 5 Mg Tablet PO 12/21/24 22:59 2.5 mg
TID KEITH Administration
Clopidogrel Bisulfate 75 mg 11/24/24 08:00 11/24/24 08:03
Clopidogrel 75 Mg Tablet PO 12/22/24 07:59 75 mg
DAILY KEITH Administration
Cyanocobalamin 1,000 mcg 11/24/24 08:00 11/24/24 08:03
Cyanocobalamin (Vitamin B-12) 500 Mcg Tablet PO 12/22/24 07:59 1,000 mcg
DAILY KEITH Administration
Heparin Sodium 5,000 units 11/24/24 16:00
Heparin 5,000 Units/Ml 1 Ml Vial SC 12/22/24 15:59
Q8 KEITH
Nicardipine/Sodium Chloride 40 mg in 200 mls @ 0 mls/hr 11/23/24 18:45 11/24/24 04:54
Cardene IV 200 mls
PER PROTOCOL KEITH Administration
Protocol
Per Protocol
Labetalol HCl 10 mg 11/23/24 17:51 11/24/24 00:54
Labetalol Hcl 5 Mg/1 Ml (20 Mg/4 Ml) Injection IV 12/21/24 17:50 10 mg
Q6HPRN PRN Administration
SBP>140 or DBP>100
Lisinopril 20 mg 11/25/24 08:00
Lisinopril 20 Mg Tablet PO 12/23/24 07:59
DAILY KEITH
Melatonin 3 mg 11/23/24 18:23
Melatonin 3 Mg Tablet PO 12/21/24 18:22
HSPRN PRN
sleep
Metoprolol Succinate 25 mg 11/23/24 20:00 11/24/24 08:03
Metoprolol 25 Mg Extended Release Tablet PO 12/21/24 19:59 25 mg
On Hold: 11/24/24 09:21 BID KEITH Administration
Prochlorperazine Edisylate 10 mg 11/23/24 14:18 11/24/24 09:07
Prochlorperazine 10 Mg/2 Ml Vial IV 12/21/24 14:17 10 mg
Q6HPRN PRN Administration
headache
Sodium Chloride 0 flush 11/23/24 17:00
Sodium Chloride 0.9% (Flush) Syringe IV 12/21/24 16:59
PER PROTOCOL KEITH
[2024-11-24 09:00] LABS: Glycohemoglobin (HgbA1c) 6.0 % (4.0-5.6)
[2024-11-24] MEDS: COMPAZINE 10 MG IV (09:07)
--- NOTE | 2024-11-24 09:19 | CON.CAR ---
Addendum entered and electronically signed by Adalberto Acosta MD 11/24/24 11:14:
I saw and evaluated the patient, and I provided the substantive portion of the medical decision making.
I reviewed and agree with the note by Ms Suarez and it accurately reflects our care.
I personally performed the medical decision making of the this encounter and my assessment and plan is below:
Resume anti-HTN meds.
If remains elevated would switch amlodipine to nifedipine
Original Note:
Consultation
Consultation Request
Date/Time Consultation Requested: 11/24/2024 09:00
Date/Time Consultation Performed: 11/24/2024 09:20
Requesting Provider: Dr. Beckman
Performing Provider: JAVIER Shukla for Dr. Acosta
Reason for Consultation: Hypertensive emergency
Medical History
-
Chief Complaint: Leg weakness
History of Present Illness:
Erika Bill is a 64-year-old female (known to her primary director learning and development, Dr. Dwayne Rose at [facility]) with CAD, hypertension, and hypercholesterolemia who presented to the emergency department yesterday, 11/23/2024, with a chief complaint of
bilateral leg weakness. She endorsed associated tingling in her bilateral arms. She was noted to have left arm weakness in triage. The onset of symptoms was greater than 12 hours prior to arrival. She had not been taking any of her ordered
medications. Overnight, she was transferred to the ICU for hypertensive emergency. She is still having weakness. She denies headache. She stopped her medication because she ran out of refills. She was due to see her PCP for refills but never
made appointment.
Past Medical History
Past Medical History: CAD, HTN and Hypercholesterolemia
Social History
Tobacco: Former Smoker
Alcohol: None
Drug: None
Personal:
Living: With Family
Employment: Not Employed
Family History
Family History: Reviewed & Not Pertinent
Allergies / Home Medications
Allergy/AdvReac Type Severity Reaction Status Date / Time
No Known Allergies Allergy Verified 11/23/24 10:22
�Medication �Instructions �Recorded �Confirmed �Type
amlodipine 10 mg tablet 10 mg PO DAILY Blood Pressure 11/23/24 11/23/24 History
aspirin 81 mg tablet,delayed 81 mg PO DAILY Blood Clot 11/23/24 11/23/24 History
release Prevention/Tx
clopidogrel 75 mg tablet (Plavix) 75 mg PO DAILY Blood Clot 11/23/24 11/23/24 History
Prevention/Tx
lisinopril 20 mg tablet 20 mg PO DAILY Blood Pressure 11/23/24 11/23/24 History
metoprolol succinate 25 mg 25 mg PO BID Blood Pressure 11/23/24 11/23/24 History
tablet,extended release 24 hr
(Toprol XL)
rosuvastatin 40 mg tablet (Crestor) 40 mg PO DAILY High Cholesterol 11/23/24 11/23/24 History
Review of Systems
-
All other systems: Negative unless noted
Constitutional: Fatigue
EENT: No Symptoms
Respiratory: No Symptoms
Cardiac: No Symptoms
Abdomen/GI: No Symptoms
: No Symptoms
Musculoskeletal: No Symptoms
Skin: No Symptoms
Neurological: Weakness
Endocrine: No Symptoms
Hematologic/Lymphatic: No Symptoms
Physical Exam
Vital Signs
Temp Pulse Resp BP Pulse Ox
97.9 F 81 18 165/92 95
11/24/24 08:25 11/24/24 08:15 11/24/24 08:15 11/24/24 08:15 11/24/24 08:15
Lab Results
11/24/24 02:48
11/24/24 02:48
Troponin I 0.016 ng/ml 11/24/24 02:48
Sij-M-Vpgubfugkgb Pept Cancelled 11/23/24 18:12
Physical Exam
General: Well Developed, Well Nourished, No Apparent Distress and Comfortable
HEENT: Normocephalic, Anicteric and Moist Mucous Membranes
Respiratory: Clear and Non Labored Respirations
Cardiac: S1/S2 and Regular Rhythm
Breast: Deferred by me
GI: Soft, Non Tender, Non Distended and Normal Bowel Sounds
Rectal: Deferred by Provider
Genito-urinary: No Costovertebral Tender
Musculoskeletal: No Clubbing, No Cyanosis and No Edema
Skin: Warm and Dry
Neuro: AO x 3
Hematologic/Lymphatic: No Lymphadenopathy
Psych: Calm
Impression / Plan
-
I/P: 64F with CAD, hypertension, and hypercholesterolemia who presented to the emergency department the chief complaint of bilateral leg weakness. Cardiology consult for hypertensive emergency
Outpatient director learning and development: Dr. Dwayne Rose ([facility])
Hypertensive emergency
- In the setting of medication nonadherence
- Slowly resuming prior medications, increase lisinopril to home dose
- Aim for once daily generic medications versus twice daily to encourage medication adherence
Bilateral lower extremity weakness
- Neurology following, for MRI today
- On DAPT (ASA/clopidogrel)
CAD
- She believes she has cardiac stents, records requested
- Continue aspirin and clopidogrel
- Chest pain-free
Hypercholesterolemia
- Calcified plaque in both carotid bulbs with a diagnosis of CAD, goal LDL <70, ideally <55
- Off her rosuvastatin LDL 179, started on atorvastatin 80 mg, recommend medication adherence with fasting lipid panel in 12 weeks
Fasting hyperglycemia with prediabetes, HgbA1c 6.0%
Data Reviewed
-
EKG: Report Reviewed by me (Sinus rhythm, rate 71)
Labs: Labs Reviewed by me
Old Records: Reviewed
--- NOTE | 2024-11-24 09:35 | PTCARENOTE ---
Dr Ellington in room to evaluate pt. Pt reporting mild posterior headache. Compazine IV given per Dr Ellington. Neuro unchanged from previous assessment findings. Cardene titrated to off- see work list intervention.
[2024-11-24 10:19] LABS: Glycohemoglobin (HgbA1c) 6.0 % (4.0-5.6)
--- NOTE | 2024-11-24 11:15 | PTCARENOTE ---
Pt rang april gale to alert staff that she was incontinent of urine 'I don't know what happened. I was asleep and I somehow pee'd'. Pt found sitting at side of bed, attempting to get OOB 'I need to use the bathroom'. Pt reminded to wait for staff
assistance prior to attempting to get OOB. PT/OT arrived to room while this RN obtained BSC. PT/OT assisted pt to BSC to void and then to bedside chair. Chair exit alarm in use. Call baljinder w/in pt reach. Pt stated intent to notify and wait for staff
prior to attempting to get out of chair. Safe environment maintained. No additional changes from previous assessment findings.
[2024-11-24] MEDS: TYLENOL 650 MG PO (12:48)
--- NOTE | 2024-11-24 13:09 | CM ---
Addendum entered by Nakul Suazo 11/24/24 15:35:
Confirmed with patient that she does not have insurance. [facility] liaison visited and is assisting with Medicaid filing.
Original Note:
Initial assessment completed with patient who lives with her SO in a 2 story home with B/B on and a full bath on , 2 steps to enter. 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 No DME. No in-home services. No HC-POA. No VA
benefits. No psychiatric hospitalizations. PCP is Dr. Macario Rg. Pharmacy is [facility] on [address] [facility] in [place]. Discharge POC: Therapy rec for acute rehab. ??? if patient has insurance. Will check. Patient off unit currently.
--- NOTE | 2024-11-24 13:57 | PTCARENOTE ---
Pt to BSC and then returned to bed for ordered MRI. This RN in attendance during MRI and providing cardiac monitoring. Pt's SBP 170-180's during MRI. Following images of brain, pt rang call gale to alert pt that she was nauseated and felt like
vomiting. Pt removed from MRI and returned to bed. SBP 190's. Pt reports continued headache 'back of my head like it was before' rates 07/04. Returned to ICU w/ BP 191/113. Dr Menard on unit and notified of events, pt's present complaint, BP. Neuro
unchanged from previous findings. Cardene gtt restarted with goal SBP 160-[address] Menard. Pt's significant other to bedside to visit pt. Pt updating sig. other on events, plan of care. No questions at this time.
[2024-11-24] MEDS: ZOFRAN 4 MG IV (14:07)
[2024-11-24] MEDS: MORPHINE SULFATE 2 MG IV (14:09)
--- NOTE | 2024-11-24 14:20 | PTCARENOTE ---
Neuro OUTSIDE INSTALLER APPRENTICE notified of events around MRI and MRI c-spine not completed- stated she will notify Dr Ellington
[2024-11-24] MEDS: HEPARIN 5000 UNITS SC ×2 (16:35→23:23)
[2024-11-24] MEDS: PROCARDIA XL (EXTENDED RELEASE) 30 MG PO (16:36)
[2024-11-24] MEDS: LIPITOR 80 MG PO (18:10)
--- NOTE | 2024-11-24 20:00 | PTCARENOTE ---
Rec'd pt sitting on chair, NIH done w/ offgoing RN- NIH- 1 , slight left lower extremity weakness, has tingling of fingers bilat, no numbness, flat affect, assisted to BSC then to bed- uses walker; SR, weak distal pulses, to keep sbp 140-160 w/
cardene prn, no edema, skin warm/dry, RA, lungs decr, sat 95, + bowel sounds, no bm, abd obese, soft, no n/v, inc of urine , purewick placed
--- NOTE | 2024-11-24 20:15 | PTCARENOTE ---
VS filed by this RN from - unable to verify VS from as this was previous shift
--- NOTE | 2024-11-24 21:00 | PTCARENOTE ---
sat 89 while sleeping, 2 liters nc applied. sat 95
[2024-11-24] MEDS: MELATONIN 3 MG PO (21:58)
--- NOTE | 2024-11-24 21:59 | PTCARENOTE ---
melatonin 3mg po given as requested
[2024-11-25] VITALS (23 sets, daily range): BP systolic 124–179; BP diastolic 73–106; PULSE 80–85; O2SAT 96; BMI 33.2
--- NOTE | 2024-11-25 00:13 | PTCARENOTE ---
sys reviewed, neuwo unch, CHG bath done, linens changed
[2024-11-25] MEDS: MORPHINE SULFATE 2 MG IV (03:25)
--- NOTE | 2024-11-25 03:31 | PTCARENOTE ---
sys reviewed, c/o R leg spasms, 2 mg morphine iv given
[2024-11-25 03:40] LABS: Hematocrit 46.3 % (37.0-47.0); Hemoglobin 15.2 g/dL (12.0-16.0); Mean Corp Hgb Conc. 32.8 g/dL (33.0-37.0); Mean Corpuscular Volume 80.9 fL (81.0-99.0); Platelet Count 240 10^3/uL (130-400); Red Cell Dist. Width 13.9 % (11.5-14.5)
[2024-11-25 04:16] LABS: Blood Urea Nitrogen 23 mg/dl (7-17); Calcium 10.4 mg/dl (8.4-10.2); Carbon Dioxide 23 mmol/L (22-30); Chloride 106 mmol/L (98-107); Estimated Creatinine Clearance 60 ml/min; Glucose 125 mg/dl (70-99); Magnesium 2.1 mg/dl (1.6-2.3); Potassium 4.3 mmol/L (3.5-5.1); Sodium 140 mmol/L (135-145); eGFR > 60.00
[2024-11-25] MEDS: TRANDATE 10 MG IV ×2 (05:06→19:59)
--- NOTE | 2024-11-25 05:07 | PTCARENOTE ---
labetolol 10 mg iv given for bp
--- NOTE | 2024-11-25 07:50 | W.PN.HOSP.TC ---
Today's Communication/Plan
-
downgrade to Tele
blood pressure control
PT/OT
DAPT statin
Assessment / Plan
Assessment / Plan
Physical Exam
General: No pallor, cyanosis, or jaundice.
HEENT: Throat clear. PERRLA Normocephalic atraumatic
NECK: Supple. No JVD Carotid Bruits
RESPIRATORY: Lungs clear to auscultation. No crackles wheezes stridor
CVS: S1, S2 normal. RRR. No murmur, rub or gallop.
ABDOMEN: Soft, non-tender. No distension. BS+/normal.
EXTREMITIES: No peripheral cyanosis or edema.
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 able to move all ext's spontaneously. 4/5 strength Lt ext's 5/5 strength Rt ext's
64F HLD, HTN CAD presents for eval b/l LE weakness. Reports headache starting a few days ago followed by new onset left leg and arm weakness day prior to presentation. She was prompted to visit ED next day when she woke to bilateral lower
extremity weakness and in ability to stand without assistance. Weakness is associated with numbness and tingling in the RUE/hand. Denies ever having symptoms like this before. Reports non-compliance with her home medications, including
antihypertensives- reportedly running out of meds a few months ago. CT/CTA head/neck noted no significant acute abn's. ED eval noted hypertension systolic 180s, afebrile, stable respiratory status on room air. Labs also noted Hyperlipidemia and
low normal B12 level. Following admission, patient was soon transferred to ICU due to concerns Hypertensive emergency systolic 200s, since improved with Cardene gtt.
#CVA Right Frontal Lobe
#Left sided weakness, lower ext weakness Left>Right, paraesthesia lower ext's, muscle cramping
#Hypertensive Emergency
#Hx CAD stent
#noncompliance off medications for past few months
Head/Neck CTA: appreciated no acute abn's
- Admitted to telemetry soon transferred to ICU d/t concerns hypertensive emergency
- BP improved on Cardene gtt, weaned off stable for downgrade to Tele 11/25
- Consult Neurology appreciated
- MRI brain appreciated 1.3 cm ischemic infarct posterior periventricular right frontal lobe
- NIH and neuro checks per protocol
- loaded with aspirin and Plavix, cont daily maintenance doses, 21 days DAPT then ASA alone
- PRN hydralazine discontinued in favor of prn Labetalol (concern patient felt worse after IV hydralazine)
- Jig And Fixture Builder Apprentice eval appreciated
- Cardio eval appreciated
Urine Tox Screen pos for amphetamines and THC
-patient endorses taking 'gummies' occasionally to help her with sleep
#hypertension
resumed at reduced dose home Amlodipine 5 mg daily and lisinopril 10 mg daily w/ holding parameters
reduced doses to avoid overcorrection likely longstanding uncontrolled HTN
Amlodipine titrated back up to home dose 10 mg daily and Lisinopril 20 mg daily
Metoprolol XL 50 mg daily
Cardio eval appreciated
#hyperlipidemia
#CAD stent placed 2016 as per patient
ASA Plavix as above
Metoprolol XL 50 mg daily
statin
#Prediabetes A1c 6.0
#Obesity
Lifestyle mgmt/wt loss counseled
#insomnia
prn melatonin
PT/OT appreciated Acute Rehab
Code status: full code
DVT Prophylaxis: SCDs
Medically stable for downgrade to Tele
discussed with patient and patients significant other Carlitos
I spent a total of 55 minutes with the patient or on the floor. More than 50% of this time involved counseling and coordination of care.
Anticipated Discharge: 24 - 48 hours
Subjective/Interval History
-
Date of Service: November 25, 2024
No acute distress sitting up comfortably in chair. Denies current pain. Significant Other Carlitos present during evaluation.
Objective Data
-
Labs:
Laboratory Results
11/25/24
03:19
WBC 13.5 H
Hgb 15.2
Hct 46.3
Plt Count 240
Sodium 140
Potassium 4.3
Chloride 106
Carbon Dioxide 23
BUN 23 H
Creatinine 1.0
Glucose 125 H
Calcium 10.4 H
Vital Signs:
Vital Signs
Temp Pulse Resp BP Pulse Ox
97.7 F 80 16 170/92 95
11/25/24 07:35 11/25/24 05:06 11/25/24 05:02 11/25/24 05:06 11/25/24 05:02
I&O
11/24/24 11/25/24 11/26/24
06:59 06:59 06:59
Intake Total 300.0 / 325.0 490.0 / 490.0
Output Total 900 / 1150 700 / 700
Balance -600.0 / -825.0 -210.0 / -210.0
[2024-11-25] MEDS: ASPIR LOW (ENTERIC COATED) 81 MG PO (08:41)
[2024-11-25] MEDS: PROCARDIA XL (EXTENDED RELEASE) 30 MG PO (08:41)
[2024-11-25] MEDS: PLAVIX 75 MG PO (08:41)
[2024-11-25] MEDS: LIORESAL 2.5 MG PO ×2 (08:41→15:59)
[2024-11-25] MEDS: ZESTRIL 20 MG PO (08:41)
[2024-11-25] MEDS: HEPARIN 5000 UNITS SC ×2 (08:42→15:59)
[2024-11-25] MEDS: VITAMIN B-12 1000 MCG PO (08:42)
--- NOTE | 2024-11-25 08:45 | PTCARENOTE ---
Assumed care of pt at 0715 following shift report. Pt awake and resting quietly in bed. No offered complaints. NIHSS completed at bedside w/ outgoing shift RN. No changes noted. Pt on O2 at 2l/min via NC, POx 99%. O2 removed w/ POx 96-97% on RA. Pt
assisted OOB to chair at her request. Using walker and moderate assist of one to transfer. Gait unsteady. Chair exit alarm in use. Call gale w/in pt reach and pt instructed to call and wait for staff assistance prior to attempting to get out of
chair- pt verbalized understanding. Physical assessment completed as documented.
--- NOTE | 2024-11-25 09:45 | W.PN.CD ---
Today's Communication / Plan
-
- Discussed with patient whether twice daily dosing was an issue as opposed to once daily, and she states that that may have been a factor.
- Will place on metoprolol succinate 50 mg once daily.
- Will discontinue nifedipine and place back on home regimen of amlodipine 10 mg daily.
- Continue lisinopril 20 mg daily.
- MRI yesterday revealed a 1.3 cm acute ischemic infarct in the posterior periventricular right frontal lobe; recommendations as per Neurology.
- Continue atorvastatin 80 mg daily.
Impression / Plan
-
I/P: 64F with CAD, hypertension, and hypercholesterolemia who presented to the emergency department the chief complaint of bilateral leg weakness. Cardiology consult for hypertensive emergency
Outpatient billboard installer: Dr. Dwayne Rose ([place])
Hypertensive emergency/CVA:
- In the setting of medication nonadherence over the past 2 months.
- Blood pressure improved with Cardene drip and IV labetalol; now must transition to oral regimen.
- Discussed with patient whether twice daily dosing was an issue as opposed to once daily, and she states that that may have been a factor.
- Will place on metoprolol succinate 50 mg once daily.
- Will discontinue nifedipine and place back on home regimen of amlodipine 10 mg daily.
- Continue lisinopril 20 mg daily.
- MRI yesterday revealed a 1.3 cm acute ischemic infarct in the posterior periventricular right frontal lobe; recommendations as per Neurology.
- On DAPT (ASA/clopidogrel) for underlying CAD.
CAD
- She believes she has cardiac stents, records requested
- Continue aspirin and clopidogrel
- Remains chest pain-free
Hypercholesterolemia
- Calcified plaque in both carotid bulbs with a diagnosis of CAD, goal LDL ideally <55
- Off her rosuvastatin LDL 179, started on atorvastatin 80 mg, recommend medication adherence with fasting lipid panel in 12 weeks
Fasting hyperglycemia with prediabetes, HgbA1c 6.0%
Physical Exam
Vital Signs/Labs
Vital Signs
Temp Pulse Resp BP Pulse Ox
97.7 F 77 16 150/91 97
11/25/24 07:35 11/25/24 08:41 11/25/24 05:02 11/25/24 08:41 11/25/24 08:20
11/24/24 11/25/24 11/26/24
06:59 06:59 06:59
Actual Weight 85.7 kg 85.1 kg
11/25/24 03:19
11/25/24 03:19
PT 12.1 Sec (11.4-14.6) 11/23/24 10:36
INR 0.87 11/23/24 10:36
APTT 25.3 Sec (23.4-35.0) 11/23/24 10:36
Magnesium 2.1 mg/dl (1.6-2.3) 11/25/24 03:19
Triglycerides 215 mg/dl (10-149) H 11/23/24 10:36
LDL Cholesterol, Calc 179 mg/dl 11/23/24 10:36
VLDL Cholesterol, Calc 43 mg/dl (0-30) H 11/23/24 10:36
HDL Cholesterol 61 mg/dl 11/23/24 10:36
TSH 1.27 uIU/ml (0.47-4.68) 11/23/24 10:36
Free T4 1.36 ng/dl (0.78-2.19) 11/23/24 10:36
11/23/24 11/23/24
10:36 18:12
Raq-N-Mrtsmfumfvd Pept 420 Cancelled
LAB Results
11/23/24 11/23/24 11/24/24
10:36 18:12 02:48
Troponin I 0.014 0.016 0.016
Physical Exam
Constitutional: No acute distress and Comfortable
EENT: Anicteric
Cardiovascular: Rhythm & rate is regular, Pedal edema is absent, Systolic murmur absent and S1S2 is normal
Respiratory: Respiratory effort normal and Lungs clear to auscul.
GI: Soft
Neuro/Psych: AO x 3
Other: Skin (Warm, dry, intact)
Data Reviewed
-
Date of Service: November 25, 2024
EKG: Tracing Personally Visualized and interpreted (Telemetry: Sinus rhythm)
Echo: Report Reviewed by me (11/24/2024: LVEF 55-60%; no significant valve disease.)
X-Ray/CT/US/MRI/NUC/PET: Report Reviewed by me
Medical Tests (PFT, Pathology etc): Report Reviewed by me (Brain MRI 11/24/2024: 1.3 cm acute ischemic infarct), Discussed with Physician (Primary Hospitalist), Discussed with Patient and Discussed with Family (Family at bedside)
Labs: Labs Reviewed by me
Critical Care Time (in minutes): 39
[2024-11-25] MEDS: TOPROL XL 50 MG PO (10:40)
--- NOTE | 2024-11-25 11:10 | W.PN.INTV ---
Today's Communication / Plan
Recommendations
Okay for downgrade to telemetry.
Assessment
-
Erika Bill is a 64 F PMHx HLD, HTN, CAD (s/p stent in 2016), family hx of ALS, and medication noncompliance x 2 months who presented to the emergency department yesterday with focal neurologic deficits including weakness of the bilateral lower
extremities (L > R) and tingling in the bilateral upper extremities as well as marked hypertension on admission, with eventual development of hypertensive emergency. She was admitted to the ICU for nicardipine drip and eventual MRI of the Brain
showed acute ischemic CVA of the right posterior frontal lobe.
ASSESSMENT
Hypertensive Emergency
Acute Ischemic Stroke of the R Posterior Frontal Lobe
Amphetamine Positive UDS
Marijuana Positive UDS
PLAN
Cardiovascular
- Continue judicious use of antihypertensives. Past 24 hours of permissive HTN. MRI now shows acute ischemic stroke. Lower BP to goal slowly. Goal BP for today 160/100.
- IV cardene transitioned to oral Procardia
- Hold metoprolol in the setting of amphetamine positivity to avoid unopposed alpha-1 agonism
- DAPT for 21 days, then transition to antiplatelet monotherapy with ASA 81 mg daily
- Resume statin
Neuro
- Neurochecks
- Appreciate Neuro
- PT/OT eval
GI
- Cholesterol Lowering Diet
- Daily BMPs
Heme
- DVT PPX: Heparin 5000u SC q8h
Subjective Dataa
Subjective Data
Date of Service:
Date of Service: November 25, 2024
Chief Complaint: Crystal Slicer Follow Up
Subjective:
Patient still endorses bilateral upper and lower extremity weakness, w/ left sided weakness worse than right, and tingling sensation in the bilateral fingertips. Otherwise denies CHRISTIAN, visual changes, chest pain, shortness of breath, lower extremity
edema, slurred speech. Endorses sciatica-like pain down the right lower extremity that patient attributes to sleeping wrong. Today she is out of bed into the chair endorses weakness with walking.
Review of Systems
Neuro: Other (see above. )
Objective Data
Data Reviewed
Vital Signs / I&O / Oxygen:
Vital Signs
Temp Pulse Resp BP Pulse Ox
97.7 F 94 16 138/96 97
11/25/24 07:35 11/25/24 10:40 11/25/24 05:02 11/25/24 10:40 11/25/24 08:20
Intake and Output
11/24/24 11/25/24 11/26/24
06:59 06:59 06:59
Intake Total 300.0 / 325.0 490.0 / 490.0 120 / 120
Output Total 900 / 1150 700 / 700
Balance -600.0 / -825.0 -210.0 / -210.0 120 / 120
SaO2 97
Nasal Cannula flow liters per 2
minute
Physical Exam
General: Comfortable
HEENT: Normocephalic and Anicteric
Cardiovascular: S1-S2, Regular Rhythm and Other (no m/r/g)
Respiratory: Clear and Non-Labored Respirations
Neurology: Awake, Alert, Oriented and Other (CN 2-12 grossly intact, no slurred speech, 3-4/5 weakness of the LUE and LLE and L supervisor partial denture department strength (no change from yesterday))
Skin: Warm
Labs/Micro/Reports
Lab Data
11/25/24 03:19
11/25/24 03:19
Microbiology
11/23/24 13:11 Nasal Swab Influenza Types A & B (CLOTILDE) - Final
Negative for Influenza A & B, NAAT
Negative results must be combined with clinical observations
and patient history.
Nucleic Acid Amplification test (NAAT)performed on the
[employer] platform.
--- NOTE | 2024-11-25 14:00 | PTCARENOTE ---
Transfer report called to '[facility]' on 4. Pt to transfer to Rm [id number]. Pt aware of plans and stated intent to notify significant other. No changes noted from previous assessment findings or new complaints received.
--- NOTE | 2024-11-25 14:23 | CM ---
B/P better controlled since medication adjustments, MRI on 11/24/24 confirmed acute CVA, infarct, UDS + for amphetamines and methamphetamines. Discharge POC: Therapy recommending Acute Rehab. Patient does not have insurance. HRSI involved.
Patient aware needs insurance for rehab and services. Expressed understanding.
[2024-11-25] MEDS: LIPITOR 80 MG PO (17:16)
--- NOTE | 2024-11-25 17:20 | VATNOTE ---
VAT rounds: during routine assessment of 18g PIV in pt's R antecubital fossa, area of redness, warmth, with palpable venous cord noted. Pt only experiencing mild discomfort. Heat applied. Education provided re care for phlebitis. Pt verbalizes
understanding.
[2024-11-26] VITALS (8 sets, daily range): BP systolic 132–179; BP diastolic 76–101; PULSE 75; O2SAT 96
[2024-11-26] MEDS: HEPARIN 5000 UNITS SC ×4 (00:25→22:58)
[2024-11-26] MEDS: TYLENOL 650 MG PO (05:55)
--- NOTE | 2024-11-26 07:26 | W.PN.HOSP.TC ---
Today's Communication/Plan
-
discharge planning acute rehab
cont bp control
monitor renal function, Lisinopril on hold for now given mild Cr elevation.
Assessment / Plan
Assessment / Plan
Physical Exam
General: No pallor, cyanosis, or jaundice.
HEENT: Throat clear. PERRLA Normocephalic atraumatic
NECK: Supple. No JVD Carotid Bruits
RESPIRATORY: Lungs clear to auscultation. No crackles wheezes stridor
CVS: S1, S2 normal. RRR. No murmur, rub or gallop.
ABDOMEN: Soft, non-tender. No distension. BS+/normal.
EXTREMITIES: No peripheral cyanosis or edema.
CLINICAL SOCIAL WORK THERAPIST: AOx3 conversant coherent. able to move all ext's spontaneously. 4/5 strength Lt ext's 5/5 strength Rt ext's
64F HLD, HTN CAD presents for eval b/l LE weakness. Reports headache starting a few days ago followed by new onset left leg and arm weakness day prior to presentation. She was prompted to visit ED next day when she woke to bilateral lower
extremity weakness and in ability to stand without assistance. Weakness is associated with numbness and tingling in the RUE/hand. Denies ever having symptoms like this before. Reports non-compliance with her home medications, including
antihypertensives- reportedly running out of meds a few months ago. CT/CTA head/neck noted no significant acute abn's. ED eval noted hypertension systolic 180s, afebrile, stable respiratory status on room air. Labs also noted Hyperlipidemia and
low normal B12 level. Following admission, patient was soon transferred to ICU due to concerns Hypertensive emergency systolic 200s, since improved with Cardene gtt.
#CVA Right Frontal Lobe
#Left sided weakness, lower ext weakness Left>Right, paraesthesia lower ext's, muscle cramping
#Hypertensive Emergency
#Hx CAD stent
#noncompliance off medications for past few months
Head/Neck CTA: appreciated no acute abn's
- Admitted to telemetry soon transferred to ICU d/t concerns hypertensive emergency
- BP improved on Cardene gtt, weaned off stable for downgrade to Tele 11/25
- Consult Neurology appreciated
- MRI brain appreciated 1.3 cm ischemic infarct posterior periventricular right frontal lobe
- NIH and neuro checks per protocol
- loaded with aspirin and Plavix, cont daily maintenance doses, 21 days DAPT then ASA alone
- PRN hydralazine discontinued in favor of prn Labetalol (concern patient felt worse after IV hydralazine)
- Yam Curer eval appreciated
- Cardio eval appreciated
Urine Tox Screen pos for amphetamines and THC
-patient endorses taking 'gummies' occasionally to help her with sleep
#hypertension
resumed at reduced dose home Amlodipine 5 mg daily and lisinopril 10 mg daily w/ holding parameters
reduced doses to avoid overcorrection likely longstanding uncontrolled HTN
Amlodipine titrated back up to home dose 10 mg daily and Lisinopril 20 mg daily
Metoprolol XL 50 mg daily
Cardio eval appreciated
Renal artery duplex appreciated no significant stenosis
Metanephrine labs pending
Mild Cr elevation 1.3
-monitor for now
-Lisinopril placed on hold last dose 11/26
#hyperlipidemia
#CAD stent placed 2015 as per patient
ASA Plavix as above
Metoprolol XL 50 mg daily
statin
#Prediabetes A1c 6.0
#Obesity
Lifestyle mgmt/wt loss counseled
#insomnia
prn melatonin
#Constipation
laxatives prn
PT/OT appreciated Acute Rehab
Code status: full code
DVT Prophylaxis: SCDs
I spent a total of 40 minutes with the patient or on the floor. More than 50% of this time involved counseling and coordination of care.
Anticipated Discharge: 24 - 48 hours
Subjective/Interval History
-
Date of Service: November 26, 2024
No acute distress, resting comfortably in bed. Reports constipation. Otherwise denies new acute issues.
Objective Data
-
Labs:
Laboratory Results
11/26/24
06:50
WBC Pending
Hgb Pending
Hct Pending
Plt Count Pending
Sodium Pending
Potassium Pending
Chloride Pending
Carbon Dioxide Pending
BUN Pending
Creatinine Pending
Glucose Pending
Calcium Pending
Vital Signs:
Vital Signs
Temp Pulse Resp BP Pulse Ox
97.9 F 86 18 132/76 97
11/26/24 03:29 11/26/24 03:29 11/26/24 03:29 11/26/24 03:29 11/26/24 03:29
I&O
11/25/24 11/26/24 11/27/24
06:59 06:59 06:59
Intake Total 490.0 / 490.0 960 / 960
Output Total 700 / 700
Balance -210.0 / -210.0 960 / 960
[2024-11-26] MEDS: ASPIR LOW (ENTERIC COATED) 81 MG PO (08:03)
[2024-11-26] MEDS: LIORESAL 5 MG PO (08:03)
[2024-11-26] MEDS: VITAMIN B-12 1000 MCG PO (08:04)
[2024-11-26] MEDS: PLAVIX 75 MG PO (08:04)
[2024-11-26] MEDS: TOPROL XL 50 MG PO (08:05)
[2024-11-26] MEDS: NORVASC 10 MG PO (08:05)
[2024-11-26] MEDS: ZESTRIL 20 MG PO (08:05)
--- NOTE | 2024-11-26 08:09 | VATNOTE ---
VAT rounds: area of phlebitis at pt's R antecubital fossa improving by this RN's assessment, pt in agreement. Erythema improving, venous cord lessened but still palpable, pt denies pain. Heat applied.
--- NOTE | 2024-11-26 08:12 | W.PN.CD ---
Today's Communication / Plan
-
starting amlodipine 10mg today which is an increase from nifedipine 30mg
monitor bp
Impression / Plan
-
I/P: 64F with CAD, hypertension, and hypercholesterolemia who presented to the emergency department the chief complaint of bilateral leg weakness. Cardiology consult for hypertensive emergency
Outpatient mate fourth: Dr. Dwayne Rose ([place])
Hypertensive emergency/CVA:
- In the setting of medication nonadherence over the past 2 months.
- Blood pressure improved with Cardene drip and IV labetalol; now must transition to oral regimen.
- Discussed with patient whether twice daily dosing was an issue as opposed to once daily, and she states that that may have been a factor. Will try to keep medications streamlined.
- Started on metoprolol succinate 50 mg once daily.
- Will discontinue nifedipine and place back on home regimen of amlodipine 10 mg daily-started 11/26/24.
- Continue lisinopril 20 mg daily.
- MRI yesterday revealed a 1.3 cm acute ischemic infarct in the posterior periventricular right frontal lobe; recommendations as per Neurology.
- On DAPT (ASA/clopidogrel) for underlying CAD.
CAD
- She believes she has cardiac stents, records requested
- Continue aspirin and clopidogrel
- Remains chest pain-free
Hypercholesterolemia
- Calcified plaque in both carotid bulbs with a diagnosis of CAD, goal LDL ideally <55
- Off her rosuvastatin LDL 179, started on atorvastatin 80 mg, recommend medication adherence with fasting lipid panel in 12 weeks
Fasting hyperglycemia with prediabetes, HgbA1c 6.0%
Physical Exam
Vital Signs/Labs
Vital Signs
Temp Pulse Resp BP Pulse Ox
97.9 F 75 18 178/101 97
11/26/24 03:29 11/26/24 08:05 11/26/24 03:29 11/26/24 08:05 11/26/24 03:29
11/25/24 11/26/24 11/27/24
06:59 06:59 06:59
Actual Weight 187 lb 9.814 oz 187 lb 3 oz
PT 12.1 Sec (11.4-14.6) 11/23/24 10:36
INR 0.87 11/23/24 10:36
APTT 25.3 Sec (23.4-35.0) 11/23/24 10:36
Magnesium 2.1 mg/dl (1.6-2.3) 11/25/24 03:19
Triglycerides 215 mg/dl (10-149) H 11/23/24 10:36
LDL Cholesterol, Calc 179 mg/dl 11/23/24 10:36
VLDL Cholesterol, Calc 43 mg/dl (0-30) H 11/23/24 10:36
HDL Cholesterol 61 mg/dl 11/23/24 10:36
TSH 1.27 uIU/ml (0.47-4.68) 11/23/24 10:36
Free T4 1.36 ng/dl (0.78-2.19) 11/23/24 10:36
11/23/24 11/23/24
10:36 18:12
Buf-T-Boaibxtfkge Pept 420 Cancelled
LAB Results
11/23/24 11/23/24 11/24/24
10:36 18:12 02:48
Troponin I 0.014 0.016 0.016
Physical Exam
Constitutional: No acute distress
Cardiovascular: Rhythm & rate is regular, Pedal edema is absent, JVD pressure is normal, Systolic murmur absent and Diastolic murmur absent
Respiratory: Respiratory effort normal, Lungs clear to auscul., Wheeze Absent, Crackles Absent and Rhonchi Absent
Neuro/Psych: AO x 3
Data Reviewed
-
Date of Service: November 26, 2024
Medical Decision Making: Review of Case with other Provider (Dr Beckman, starting amlodipine today)
EKG: Other (tele sinus)
[2024-11-26 08:21] LABS: Hematocrit 48.1 % (37.0-47.0); Hemoglobin 15.3 g/dL (12.0-16.0); Mean Corp Hgb Conc. 31.8 g/dL (33.0-37.0); Mean Corpuscular Volume 82.5 fL (81.0-99.0); Platelet Count 231 10^3/uL (130-400); Red Cell Dist. Width 14.3 % (11.5-14.5)
[2024-11-26 08:39] LABS: Blood Urea Nitrogen 43 mg/dl (7-17); Calcium 9.9 mg/dl (8.4-10.2); Carbon Dioxide 23 mmol/L (22-30); Chloride 105 mmol/L (98-107); Estimated Creatinine Clearance 46 ml/min; Glucose 119 mg/dl (70-99); Magnesium 2.2 mg/dl (1.6-2.3); Potassium 4.8 mmol/L (3.5-5.1); Sodium 140 mmol/L (135-145); eGFR 46.49
--- NOTE | 2024-11-26 13:35 | CM ---
CM reviewed chart, patient seen bedside, patient daughter Gustavo on phone. CM discussed therapy recommendation of Acute Rehab, patient agreeable, referral to [place].
CM spoke with patient once daughter off phone, discussed positive test for methamphetamine. Patient reports she is unsure how this is possible, denies any substance use hx. Patient reports she did take an Adderall given to her by a friend when she
was helping friend move, unsure what might have been in pill. 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 CM discussed will need
to make a report to [facility] [facility]. Patient reports her daughter is not aware of the positive for methamphetamine.
RYAN spoke with Lu, foundry operator ID [id number] through [employer], report made.
RYAN spoke with Ann Marie from [facility], provided patient with documents needed to submit application for MA, once application approved, will hopefully be accepted by [facility]. Ann Marie reports they need a Management Letter to submit with application, will
relay to patient.
Plan; [facility] following, therapy recommending acute rehab upon d/c.
[2024-11-26] MEDS: LIPITOR 80 MG PO (16:56)
[2024-11-26] MEDS: MELATONIN 3 MG PO (22:58)
[2024-11-27] VITALS (7 sets, daily range): BP systolic 133–163; BP diastolic 83–97; PULSE 73; O2SAT 96
[2024-11-27] MEDS: LIORESAL 5 MG PO (02:18)
--- NOTE | 2024-11-27 06:49 | W.PN.HOSP.TC ---
Today's Communication/Plan
-
Medically stable for discharge Acute Rehab pending acceptance/insurance authorization
Assessment / Plan
Assessment / Plan
Physical Exam
General: No pallor, cyanosis, or jaundice.
HEENT: Throat clear. PERRLA Normocephalic atraumatic
NECK: Supple. No JVD Carotid Bruits
RESPIRATORY: Lungs clear to auscultation. No crackles wheezes stridor
CVS: S1, S2 normal. RRR. No murmur, rub or gallop.
ABDOMEN: Soft, non-tender. No distension. BS+/normal.
EXTREMITIES: No peripheral cyanosis or edema.
PRESS CUTTER: AOx3 conversant coherent. able to move all ext's spontaneously. 4/5 strength Lt ext's 5/5 strength Rt ext's
64F HLD, HTN CAD presents for eval b/l LE weakness. Reports headache starting a few days ago followed by new onset left leg and arm weakness day prior to presentation. She was prompted to visit ED next day when she woke to bilateral lower
extremity weakness and in ability to stand without assistance. Weakness is associated with numbness and tingling in the RUE/hand. Denies ever having symptoms like this before. Reports non-compliance with her home medications, including
antihypertensives- reportedly running out of meds a few months ago. CT/CTA head/neck noted no significant acute abn's. ED eval noted hypertension systolic 180s, afebrile, stable respiratory status on room air. Labs also noted Hyperlipidemia and
low normal B12 level. Following admission, patient was soon transferred to ICU due to concerns Hypertensive emergency systolic 200s, since improved with Cardene gtt.
#CVA Right Frontal Lobe
#Left sided weakness, lower ext weakness Left>Right, paraesthesia lower ext's, muscle cramping
#Hypertensive Emergency
#Hx CAD stent
#noncompliance off medications for past few months
Head/Neck CTA: appreciated no acute abn's
- Admitted to telemetry soon transferred to ICU d/t concerns hypertensive emergency
- BP improved on Cardene gtt, weaned off stable for downgrade to Tele 11/25
- Consult Neurology appreciated
- MRI brain appreciated 1.3 cm ischemic infarct posterior periventricular right frontal lobe
- NIH and neuro checks per protocol
- loaded with aspirin and Plavix, cont daily maintenance doses, 21 days DAPT then ASA alone
- PRN hydralazine discontinued in favor of prn Labetalol (concern patient felt worse after IV hydralazine)
- Cross Country And Track And Field Coach eval appreciated
- Cardio eval appreciated
Urine Tox Screen pos for amphetamines and THC
-patient endorses taking 'gummies' occasionally to help her with sleep
#hypertension
resumed at reduced dose home Amlodipine 5 mg daily and lisinopril 10 mg daily w/ holding parameters
reduced doses to avoid overcorrection likely longstanding uncontrolled HTN
Amlodipine titrated back up to home dose 10 mg daily and Lisinopril 20 mg daily
Metoprolol XL 50 mg daily
Cardio eval appreciated
Renal artery duplex appreciated no significant stenosis
Metanephrine labs pending
Mild Cr elevation 1.3
-resolved
-Lisinopril briefly held, resumed
#hyperlipidemia
#CAD stent placed 2015 as per patient
ASA Plavix as above
Metoprolol XL 50 mg daily
statin
#Prediabetes A1c 6.0
#Obesity
Lifestyle mgmt/wt loss counseled
#insomnia
prn melatonin
#Constipation
laxatives prn
PT/OT appreciated Acute Rehab
Code status: full code
DVT Prophylaxis: SCDs
Medically stable for discharge Acute Rehab pending acceptance/insurance authorization
I spent a total of 37 minutes with the patient or on the floor. More than 50% of this time involved counseling and coordination of care.
Anticipated Discharge: 24 - 48 hours
Subjective/Interval History
-
Date of Service: November 27, 2024
no acute distress, overall reports feeling well. Denies new acute issues at this time. Constipation resolved. Tolerating diet.
Objective Data
-
Labs:
Laboratory Results
11/27/24
06:00
WBC Pending
Hgb Pending
Hct Pending
Plt Count Pending
Sodium Pending
Potassium Pending
Chloride Pending
Carbon Dioxide Pending
BUN Pending
Creatinine Pending
Glucose Pending
Calcium Pending
Vital Signs:
Vital Signs
Temp Pulse Resp BP Pulse Ox
98.1 F 66 18 153/83 96
11/27/24 02:54 11/27/24 02:54 11/27/24 02:54 11/27/24 02:54 11/27/24 02:54
I&O
11/25/24 11/26/24 11/27/24
06:59 06:59 06:59
Intake Total 490.0 / 490.0 960 / 960 120 / 120
Output Total 700 / 700 100 / 100
Balance -210.0 / -210.0 960 / 960
--- NOTE | 2024-11-27 08:21 | W.PN.CD ---
Today's Communication / Plan
-
continue current medications.
Ok to discharge to [facility].
Patient should call for follow up appointment upon discharge with Dr Rose at [place].
Impression / Plan
-
I/P: 64F with CAD, hypertension, and hypercholesterolemia who presented to the emergency department the chief complaint of bilateral leg weakness. Cardiology consult for hypertensive emergency
Outpatient sports management professor: Dr. Dwayne Rose ([place])
Hypertensive emergency/CVA:
-Improved, continue current medications
- In the setting of medication nonadherence over the past 2 months.
- Blood pressure improved with Cardene drip and IV labetalol; now must transition to oral regimen.
- Discussed with patient whether twice daily dosing was an issue as opposed to once daily, and she states that that may have been a factor. Will try to keep medications streamlined.
- Started on metoprolol succinate 50 mg once daily.
- Will discontinue nifedipine and place back on home regimen of amlodipine 10 mg daily-started 11/26/24.
- Continue lisinopril 20 mg daily.
- MRI yesterday revealed a 1.3 cm acute ischemic infarct in the posterior periventricular right frontal lobe; recommendations as per Neurology.
- On DAPT (ASA/clopidogrel) for underlying CAD.
CAD
- She believes she has cardiac stents, records requested
- Continue aspirin and clopidogrel
- Remains chest pain-free
Hypercholesterolemia
- Calcified plaque in both carotid bulbs with a diagnosis of CAD, goal LDL ideally <55
- Off her rosuvastatin LDL 179, started on atorvastatin 80 mg, recommend medication adherence with fasting lipid panel in 12 weeks
Fasting hyperglycemia with prediabetes, HgbA1c 6.0%
Physical Exam
Vital Signs/Labs
Vital Signs
Temp Pulse Resp BP Pulse Ox
98.1 F 66 18 153/83 96
11/27/24 02:54 11/27/24 02:54 11/27/24 02:54 11/27/24 02:54 11/27/24 02:54
11/26/24 11/27/24 11/28/24
06:59 06:59 06:59
Actual Weight 187 lb 3 oz
PT 12.1 Sec (11.4-14.6) 11/23/24 10:36
INR 0.87 11/23/24 10:36
APTT 25.3 Sec (23.4-35.0) 11/23/24 10:36
Magnesium 2.2 mg/dl (1.6-2.3) 11/26/24 06:50
Triglycerides 215 mg/dl (10-149) H 11/23/24 10:36
LDL Cholesterol, Calc 179 mg/dl 11/23/24 10:36
VLDL Cholesterol, Calc 43 mg/dl (0-30) H 11/23/24 10:36
HDL Cholesterol 61 mg/dl 11/23/24 10:36
TSH 1.27 uIU/ml (0.47-4.68) 11/23/24 10:36
Free T4 1.36 ng/dl (0.78-2.19) 11/23/24 10:36
11/23/24 11/23/24
10:36 18:12
Myc-L-Uofqfwcyrhr Pept 420 Cancelled
Physical Exam
Constitutional: No acute distress
Cardiovascular: Rhythm & rate is regular, Pedal edema is absent, JVD pressure is normal, Systolic murmur absent and Diastolic murmur absent
Respiratory: Respiratory effort normal, Lungs clear to auscul., Wheeze Absent, Crackles Absent and Rhonchi Absent
Neuro/Psych: AO x 3
Data Reviewed
-
Date of Service: November 27, 2024
Medical Decision Making: Review of Case with other Provider (Dr Beckman, ok to discharge on current medications.)
[2024-11-27 09:02] LABS: Hematocrit 46.4 % (37.0-47.0); Hemoglobin 14.8 g/dL (12.0-16.0); Mean Corp Hgb Conc. 31.9 g/dL (33.0-37.0); Mean Corpuscular Volume 81.8 fL (81.0-99.0); Platelet Count 198 10^3/uL (130-400); Red Cell Dist. Width 14.2 % (11.5-14.5)
[2024-11-27] MEDS: VITAMIN B-12 1000 MCG PO (09:20)
[2024-11-27] MEDS: ASPIR LOW (ENTERIC COATED) 81 MG PO (09:20)
[2024-11-27] MEDS: NORVASC 10 MG PO (09:20)
[2024-11-27] MEDS: TOPROL XL 50 MG PO (09:21)
[2024-11-27] MEDS: PLAVIX 75 MG PO (09:21)
[2024-11-27] MEDS: HEPARIN 5000 UNITS SC ×3 (09:21→23:03)
[2024-11-27 09:37] LABS: Blood Urea Nitrogen 47 mg/dl (7-17); Calcium 9.8 mg/dl (8.4-10.2); Carbon Dioxide 24 mmol/L (22-30); Chloride 106 mmol/L (98-107); Estimated Creatinine Clearance 60 ml/min; Glucose 108 mg/dl (70-99); Magnesium 2.2 mg/dl (1.6-2.3); Potassium 5.0 mmol/L (3.5-5.1); Sodium 137 mmol/L (135-145); eGFR > 60.00
--- NOTE | 2024-11-27 11:00 | CM ---
CM reviewed chart, patient seen resting in chair.
Call to Ann Marie at [facility], asked if she can call pt to discuss what documents are needed for MA application.
Pt reports her significant other is coming in to hospital today to bring in documents needed- provided Ann Marie's contact number once documents are here to submit for MA application.
Referral to [facility]- can accept once MA application cleared, pt aware.
CM will continue to follow for all discharge planning needs.
Plan; [facility], pending MA approval, pt to supply documents needed to [facility]
--- NOTE | 2024-11-27 12:25 | PN.CDI ---
CDI
- -
CDI:
Physician Documentation Request
Admit Date: 11/23/24 18:39
Dear Doctor Rk,
Please review the following and provide your response in the progress notes.
Clinical Indicators:
Pt admitted with CVA/HTN emergency
Progress note 11/26, ' Mild Cr elevation 1.3monitor for now Lisinopril placed on hold last dose 11/26...'
Renal functions as below
11/24/24 11/25/24 11/26/24
02:48 03:19 06:50
Creatinine 0.7 1.0 1.3 H
Clarify which of the following accurately represents the patient's renal status:
JANAE
Abnormal lab value only
Other (Please Specify)
Criteria for JANAE*
1 Increase in serum creatinine by > or = to 0.3 mg/dL (> or = to 26.5 micromol/L) within 48 hours, OR
2 Increase in serum creatinine to > or = to 1.5 times baseline, which is known or presumed to have occurred within 7 days, OR
3 Urine volume < 0.5 nL/kg/hour for six hours
Use of terms such as suspected, likely, concern for, or probable (associated with a specific diagnosis that is being evaluated, monitored, or treated as if it exists) are acceptable and can be coded in the inpatient setting, when documented at the
time of discharge.
Thank you,
Sammie Crawford RN
CDI Specialist
[place] [facility]
Please use your independent medical judgment in providing your response.
*Source: Kidney Disease: Improving Global Outcomes (KDIGO) 2012
--- NOTE | 2024-11-27 14:09 | VATNOTE ---
11/27 - upon reassessment of Right ACF, noted a 12 cm streak and cord formation from previously assessed ACF phlebitis. Pt verbalizing improvement in pain from previous days. Additional heat applied again today. Will continue to monitor.
[2024-11-27] MEDS: LIPITOR 80 MG PO (17:37)
[2024-11-27] MEDS: MELATONIN 3 MG PO (23:04)
[2024-11-28] VITALS (9 sets, daily range): BP systolic 138–177; BP diastolic 89–105; PULSE 77; O2SAT 100
--- NOTE | 2024-11-28 07:45 | W.PN.HOSP.TC ---
Today's Communication/Plan
-
ok to dc youth nutritional monitor
check manual pressure if abnormally high
imodium prn
PT/OT
discharge planning Acute Rehab
Assessment / Plan
Assessment / Plan
Physical Exam
General: No pallor, cyanosis, or jaundice.
HEENT: Throat clear. PERRLA Normocephalic atraumatic
NECK: Supple. No JVD Carotid Bruits
RESPIRATORY: Lungs clear to auscultation. No crackles wheezes stridor
CVS: S1, S2 normal. RRR. No murmur, rub or gallop.
ABDOMEN: Soft, non-tender. No distension. BS+/normal.
EXTREMITIES: No peripheral cyanosis or edema.
SHUTTLER CAR: AOx3 conversant coherent. able to move all ext's spontaneously. 4/5 strength Lt ext's 5/5 strength Rt ext's
64F HLD, HTN CAD presents for eval b/l LE weakness. Reports headache starting a few days ago followed by new onset left leg and arm weakness day prior to presentation. She was prompted to visit ED next day when she woke to bilateral lower
extremity weakness and in ability to stand without assistance. Weakness is associated with numbness and tingling in the RUE/hand. Denies ever having symptoms like this before. Reports non-compliance with her home medications, including
antihypertensives- reportedly running out of meds a few months ago. CT/CTA head/neck noted no significant acute abn's. ED eval noted hypertension systolic 180s, afebrile, stable respiratory status on room air. Labs also noted Hyperlipidemia and
low normal B12 level. Following admission, patient was soon transferred to ICU due to concerns Hypertensive emergency systolic 200s, since improved with Cardene gtt.
#CVA Right Frontal Lobe
#Left sided weakness, lower ext weakness Left>Right, paraesthesia lower ext's, muscle cramping
#Hypertensive Emergency
#Hx CAD stent
#noncompliance off medications for past few months
Head/Neck CTA: appreciated no acute abn's
- Admitted to telemetry soon transferred to ICU d/t concerns hypertensive emergency
- BP improved on Cardene gtt, weaned off stable for downgrade to Tele 11/25
- Consult Neurology appreciated
- MRI brain appreciated 1.3 cm ischemic infarct posterior periventricular right frontal lobe
- NIH and neuro checks per protocol
- loaded with aspirin and Plavix, cont daily maintenance doses, 21 days DAPT then ASA alone
- PRN hydralazine discontinued in favor of prn Labetalol (concern patient felt worse after IV hydralazine)
- Cryptologic Technician Operator/Analyst eval appreciated
- Cardio eval appreciated
Urine Tox Screen pos for amphetamines and THC
-patient endorses taking 'gummies' occasionally to help her with sleep
#hypertension
resumed at reduced dose home Amlodipine 5 mg daily and lisinopril 10 mg daily w/ holding parameters
reduced doses to avoid overcorrection likely longstanding uncontrolled HTN
Amlodipine titrated back up to home dose 10 mg daily and Lisinopril 20 mg daily
Metoprolol XL 50 mg daily
Cardio eval appreciated
Renal artery duplex appreciated no significant stenosis
Metanephrine labs pending
Mild Cr elevation 1.3
-resolved, likely singular abnormal lab value, not JANAE
-Lisinopril briefly held, resumed
#hyperlipidemia
#CAD stent placed 2015 as per patient
ASA Plavix as above
Metoprolol XL 50 mg daily
statin
#Prediabetes A1c 6.0
#Obesity
Lifestyle mgmt/wt loss counseled
#insomnia
prn melatonin
#Constipation
laxatives prn
resolved
#Diarrhea
imodium prn
PT/OT appreciated Acute Rehab
Code status: full code
DVT Prophylaxis: SCDs
Medically stable for discharge Acute Rehab pending acceptance/insurance authorization
I spent a total of 37 minutes with the patient or on the floor. More than 50% of this time involved counseling and coordination of care.
Anticipated Discharge: 24 - 48 hours
Subjective/Interval History
-
Date of Service: November 28, 2024
No acute distress, appears comfortable at this time. Depressed with recent events including stroke. Declines antidepressant at this time. Diarrhea noted later in the day.
Objective Data
-
Labs:
Laboratory Results
11/28/24
06:28
WBC Pending
Hgb Pending
Hct Pending
Plt Count Pending
Sodium Pending
Potassium Pending
Chloride Pending
Carbon Dioxide Pending
BUN Pending
Creatinine Pending
Glucose Pending
Calcium Pending
Vital Signs:
Vital Signs
Temp Pulse Resp BP Pulse Ox
97.4 F 70 18 159/90 97
11/28/24 03:32 11/28/24 03:32 11/28/24 03:32 11/28/24 03:32 11/28/24 03:32
I&O
11/27/24 11/28/24 11/29/24
06:59 06:59 06:59
Intake Total 120 / 120 1140 / 1140
Output Total 100 / 100
Balance 20 / 20 1140 / 1140
[2024-11-28 07:46] LABS: Blood Urea Nitrogen 38 mg/dl (7-17); Calcium 9.7 mg/dl (8.4-10.2); Carbon Dioxide 25 mmol/L (22-30); Chloride 107 mmol/L (98-107); Estimated Creatinine Clearance 67 ml/min; Glucose 110 mg/dl (70-99); Magnesium 2.0 mg/dl (1.6-2.3); Potassium 4.5 mmol/L (3.5-5.1); Sodium 138 mmol/L (135-145); eGFR > 60.00
[2024-11-28 08:10] LABS: Hematocrit 44.8 % (37.0-47.0); Hemoglobin 14.2 g/dL (12.0-16.0); Mean Corp Hgb Conc. 31.7 g/dL (33.0-37.0); Mean Corpuscular Volume 82.7 fL (81.0-99.0); Platelet Count 200 10^3/uL (130-400); Red Cell Dist. Width 14.2 % (11.5-14.5)
[2024-11-28] MEDS: ASPIR LOW (ENTERIC COATED) 81 MG PO (08:15)
[2024-11-28] MEDS: NORVASC 10 MG PO (08:19)
[2024-11-28] MEDS: PLAVIX 75 MG PO (08:19)
[2024-11-28] MEDS: TOPROL XL 50 MG PO (08:19)
[2024-11-28] MEDS: VITAMIN B-12 1000 MCG PO (08:20)
[2024-11-28] MEDS: HEPARIN 5000 UNITS SC ×3 (08:21→22:53)
[2024-11-28] MEDS: ZESTRIL 20 MG PO (08:34)
--- NOTE | 2024-11-28 11:15 | CM ---
Chart reviewed and physical therapy are recommending acute rehab for patient, patient has no insurance, [facility] contacted to see if patient will qualify for Medicaid, per patient she was able to provide all paperwork to [facility].
Plan; Waiting on update from [facility] to see if patient qualifies for Acute rehab.
[2024-11-28] MEDS: IMODIUM 2 MG PO ×2 (16:41→22:53)
[2024-11-28] MEDS: LIPITOR 80 MG PO (18:14)
[2024-11-28] MEDS: MELATONIN 3 MG PO (23:00)
[2024-11-29 06:35] LABS: Blood Urea Nitrogen 31 mg/dl (7-17); Calcium 9.7 mg/dl (8.4-10.2); Carbon Dioxide 23 mmol/L (22-30); Chloride 107 mmol/L (98-107); Estimated Creatinine Clearance 67 ml/min; Glucose 104 mg/dl (70-99); Hematocrit 45.8 % (37.0-47.0); Hemoglobin 14.7 g/dL (12.0-16.0); Magnesium 1.9 mg/dl (1.6-2.3); Mean Corp Hgb Conc. 32.1 g/dL (33.0-37.0); Mean Corpuscular Volume 83.0 fL (81.0-99.0); Platelet Count 184 10^3/uL (130-400); Potassium 4.7 mmol/L (3.5-5.1); Red Cell Dist. Width 14.0 % (11.5-14.5); Sodium 139 mmol/L (135-145); eGFR > 60.00
[2024-11-29 07:40] VITALS: BP 129/76
--- NOTE | 2024-11-29 07:54 | W.PN.HOSP.TC ---
Today's Communication/Plan
-
Medically stable for Acute Rehab pending [facility] approval
Assessment / Plan
Assessment / Plan
Physical Exam
General: No pallor, cyanosis, or jaundice.
HEENT: Throat clear. PERRLA Normocephalic atraumatic
NECK: Supple. No JVD Carotid Bruits
RESPIRATORY: Lungs clear to auscultation. No crackles wheezes stridor
CVS: S1, S2 normal. RRR. No murmur, rub or gallop.
ABDOMEN: Soft, non-tender. No distension. BS+/normal.
EXTREMITIES: No peripheral cyanosis or edema.
SECURITY MANAGEMENT SPECIALIST: AOx3 conversant coherent. able to move all ext's spontaneously. 4/5 strength Lt ext's 5/5 strength Rt ext's
64F HLD, HTN CAD presents for eval b/l LE weakness. Reports headache starting a few days ago followed by new onset left leg and arm weakness day prior to presentation. She was prompted to visit ED next day when she woke to bilateral lower
extremity weakness and in ability to stand without assistance. Weakness is associated with numbness and tingling in the RUE/hand. Denies ever having symptoms like this before. Reports non-compliance with her home medications, including
antihypertensives- reportedly running out of meds a few months ago. CT/CTA head/neck noted no significant acute abn's. ED eval noted hypertension systolic 180s, afebrile, stable respiratory status on room air. Labs also noted Hyperlipidemia and
low normal B12 level. Following admission, patient was soon transferred to ICU due to concerns Hypertensive emergency systolic 200s, since improved with Cardene gtt.
#CVA Right Frontal Lobe
#Left sided weakness, lower ext weakness Left>Right, paraesthesia lower ext's, muscle cramping
#Hypertensive Emergency
#Hx CAD stent
#noncompliance off medications for past few months
Head/Neck CTA: appreciated no acute abn's
- Admitted to telemetry soon transferred to ICU d/t concerns hypertensive emergency
- BP improved on Cardene gtt, weaned off stable for downgrade to Tele 11/25 consistently stable since downgraded to med/surg
- Consult Neurology appreciated
- MRI brain appreciated 1.3 cm ischemic infarct posterior periventricular right frontal lobe
- NIH and neuro checks per protocol
- loaded with aspirin and Plavix, cont daily maintenance doses, 21 days DAPT 11/23/24-12/13/24 then ASA alone
- PRN hydralazine discontinued in favor of prn Labetalol (concern patient felt worse after IV hydralazine), prn since discontinued with downgrade to med/surg
- Marketing Liaison eval appreciated
- Cardio eval appreciated
-Baclofen 5 mg TIDPRN
Urine Tox Screen pos for amphetamines and THC
-patient endorses taking 'gummies' occasionally to help her with sleep
-counseled to avoid illicit substances
#hypertension
resumed at reduced dose home Amlodipine 5 mg daily and lisinopril 10 mg daily w/ holding parameters
reduced doses to avoid overcorrection likely longstanding uncontrolled HTN
Amlodipine titrated back up to home dose 10 mg daily and Lisinopril 20 mg daily
Metoprolol XL 50 mg daily
Cardio eval appreciated
Renal artery duplex appreciated no significant stenosis
Metanephrine labs pending
Mild Cr elevation 1.3
-resolved, likely singular abnormal lab value, not JANAE
-Lisinopril briefly held, resumed
#hyperlipidemia
#CAD stent placed 2015 as per patient
ASA Plavix as above
Metoprolol XL 50 mg daily
statin
#Prediabetes A1c 6.0
#Obesity
Lifestyle mgmt/wt loss counseled
#insomnia
prn melatonin
#Constipation
laxatives prn
resolved
#Diarrhea
imodium prn
resolved
PT/OT appreciated Acute Rehab
Code status: full code
DVT Prophylaxis: SCDs
Medically stable for discharge Acute Rehab pending acceptance/insurance authorization
I spent a total of 37 minutes with the patient or on the floor. More than 50% of this time involved counseling and coordination of care.
Anticipated Discharge: 24 - 48 hours
Subjective/Interval History
-
Date of Service: November 29, 2024
No acute distress sitting up comfortably in bed. Episode diarrhea yesterday treated with prn imodium. Overall reports feeling well at this time. No new acute issues.
Objective Data
-
Labs:
Laboratory Results
11/29/24
05:36
WBC 9.0
Hgb 14.7
Hct 45.8
Plt Count 184
Sodium 139
Potassium 4.7
Chloride 107
Carbon Dioxide 23
BUN 31 H
Creatinine 0.9
Glucose 104 H
Calcium 9.7
Vital Signs:
Vital Signs
Temp Pulse Resp BP Pulse Ox
98 F 72 18 138/96 97
11/28/24 23:59 11/28/24 23:59 11/28/24 23:59 11/28/24 23:59 11/28/24 15:40
I&O
11/28/24 11/29/24 11/30/24
06:59 06:59 06:59
Intake Total 1140 / 1140
Balance 1140 / 1140
[2024-11-29] MEDS: ZESTRIL 20 MG PO (09:09)
[2024-11-29] MEDS: NORVASC 10 MG PO (09:09)
[2024-11-29] MEDS: PLAVIX 75 MG PO (09:09)
[2024-11-29] MEDS: ASPIR LOW (ENTERIC COATED) 81 MG PO (09:09)
[2024-11-29] MEDS: VITAMIN B-12 1000 MCG PO (09:09)
[2024-11-29] MEDS: TOPROL XL 50 MG PO (09:09)
[2024-11-29] MEDS: HEPARIN 5000 UNITS SC ×3 (09:10→23:19)
--- NOTE | 2024-11-29 11:02 | VATNOTE ---
Phlebitis to right ACF reported by previous shift. Patient notes area is sore and tender to touch, but states it feels improved. Patient also reports staff intermittently placing warm compresses to area. Palpable cord remains. No drainage noted.
Will monitor.
[2024-11-29 11:25] VITALS: BP 146/87
[2024-11-29 13:55] VITALS: BP 120/78; PULSE 76
[2024-11-29 15:30] VITALS: BP 144/76
[2024-11-29] MEDS: LIPITOR 80 MG PO (17:09)
[2024-11-29 23:18] VITALS: BP 124/77
[2024-11-29] MEDS: MELATONIN 3 MG PO (23:20)
[2024-11-30 08:30] VITALS: BP 150/98
[2024-11-30 09:50] VITALS: BP 151/90; PULSE 72; O2SAT 99
[2024-11-30] MEDS: ZESTRIL 20 MG PO (10:04)
[2024-11-30] MEDS: NORVASC 10 MG PO (10:04)
[2024-11-30] MEDS: VITAMIN B-12 1000 MCG PO (10:04)
[2024-11-30] MEDS: ASPIR LOW (ENTERIC COATED) 81 MG PO (10:04)
[2024-11-30] MEDS: PLAVIX 75 MG PO (10:05)
[2024-11-30] MEDS: TOPROL XL 50 MG PO (10:05)
[2024-11-30] MEDS: HEPARIN 5000 UNITS SC (10:05)
--- NOTE | 2024-11-30 10:09 | CM ---
Addendum entered by Elvia Alejandra 11/30/24 12:22:
CM spoke with Samia from [facility] ([phone]), MA application cleared, able to accept patient today. Requesting OT to see patient for updated notes, TT with request.
Patient seen bedside, aware accepted to [facility].
Plan; d/c to [facility]
Report: [phone]

Original Note:
CM reviewed chart, patient seen bedside.
Per [facility] liaison, [facility] waiting on proof of residence, update to patient, will obtain information and provide to CM or [facility].
CM will continue to follow for all d/c planning needs.
Plan; [facility] once MA application approved
--- NOTE | 2024-11-30 12:44 | W.PN.HOSP.TC ---
Addendum entered and electronically signed by Chadwick Keating MD 11/30/24 12:54:
Of note patient on aspirin and Plavix for CAD with history of stent. Continue both until outpatient cardiology and neurology evaluation.
Original Note:
Today's Communication/Plan
-
asa/plavix for 21d per neurology
Strict blood pressure control
Follow-up with primary cardiology
Dispo to acute rehab
Assessment / Plan
Assessment / Plan
Physical Exam
General: No pallor, cyanosis, or jaundice.
HEENT: Throat clear. Normocephalic atraumatic
NECK: Supple. No JVD Carotid Bruits
RESPIRATORY: Lungs clear to auscultation. No crackles wheezes stridor
CVS: S1, S2 normal. RRR. No murmur, rub or gallop.
ABDOMEN: Soft, non-tender. No distension. BS+/normal.
EXTREMITIES: No peripheral cyanosis or edema.
SWITCHMAN: AOx3 conversant coherent.
64F HLD, HTN CAD presents for robina b/l FAUSTINO delgadillo. Reports headache starting a few days ago followed by new onset left leg and arm weakness day prior to presentation. She was prompted to visit ED next day when she woke to bilateral lower
extremity weakness and in ability to stand without assistance. Weakness is associated with numbness and tingling in the RUE/hand. Denies ever having symptoms like this before. Reports non-compliance with her home medications, including
antihypertensives- reportedly running out of meds a few months ago. CT/CTA head/neck noted no significant acute abn's. ED eval noted hypertension systolic 180s, afebrile, stable respiratory status on room air. Labs also noted Hyperlipidemia and
low normal B12 level. Following admission, patient was soon transferred to ICU due to concerns Hypertensive emergency systolic 200s, since improved with Cardene gtt.
#CVA Right Frontal Lobe
#Left sided weakness, lower ext weakness Left>Right, paraesthesia lower ext's, muscle cramping
#Hypertensive Emergency
#Hx CAD stent
#noncompliance off medications for past few months
Head/Neck CTA: appreciated no acute abn's
- Admitted to telemetry soon transferred to ICU d/t concerns hypertensive emergency
- BP improved on Cardene gtt, weaned off stable for downgrade to Tele 11/25 consistently stable since downgraded to med/surg
- Consult Neurology appreciated
- MRI brain appreciated 1.3 cm ischemic infarct posterior periventricular right frontal lobe
- NIH and neuro checks per protocol
- loaded with aspirin and Plavix, cont daily maintenance doses, 21 days DAPT 11/23/24-12/13/24 then ASA alone
- PRN hydralazine discontinued in favor of prn Labetalol (concern patient felt worse after IV hydralazine), prn since discontinued with downgrade to med/surg
- Supervisor Prep eval appreciated
- Cardio eval appreciated
-Baclofen 5 mg TIDPRN
Urine Tox Screen pos for amphetamines and THC
-patient endorses taking 'gummies' occasionally to help her with sleep
-counseled to avoid illicit substances
#hypertension
resumed at reduced dose home Amlodipine 5 mg daily and lisinopril 10 mg daily w/ holding parameters
reduced doses to avoid overcorrection likely longstanding uncontrolled HTN
Amlodipine titrated back up to home dose 10 mg daily and Lisinopril 20 mg daily
Metoprolol XL 50 mg daily
Cardio eval appreciated
Renal artery duplex appreciated no significant stenosis
Mild Cr elevation 1.3
-resolved, likely singular abnormal lab value, not JANAE
-Lisinopril briefly held, resumed
#hyperlipidemia
#CAD stent placed 2015 as per patient
ASA Plavix as above
Metoprolol XL 50 mg daily
statin
#Prediabetes A1c 6.0
#Obesity
Lifestyle mgmt/wt loss counseled
#insomnia
prn melatonin
#Constipation
laxatives prn
resolved
#Diarrhea
imodium prn
resolved
PT/OT appreciated Acute Rehab
Code status: full code
DVT Prophylaxis: SCDs
More than 30 minutes spent in discharge including
Final examination of the patient
Summarizing hospital stay
Instructions for continuing care to all relevant caregivers
Preparation of discharge records, prescriptions, and referral forms
Total time spent (in minutes): 52
Anticipated Discharge: Today
Subjective/Interval History
-
Date of Service: November 30, 2024
States the weakness remains the same
Tolerating diet
Objective Data
-
Vital Signs:
Vital Signs
Temp Pulse Resp BP Pulse Ox
97.9 F 60 20 150/98 98
11/30/24 08:30 11/30/24 10:05 11/30/24 08:30 11/30/24 10:05 11/30/24 08:30
I&O
11/29/24 11/30/24 12/01/24
06:59 06:59 06:59
Intake Total 120 / 120
Balance 120 / 120
--- NOTE | 2024-11-30 12:46 | W.DCSUMMARY ---
Discharge Summary
Discharge Data
Date of Admission: 11/23/24
Date of Discharge: 11/30/24
-
Pending Results: No
Hospital Course
64F HLD, HTN CAD presents for eval b/l LE weakness. Reports headache starting a few days ago followed by new onset left leg and arm weakness day prior to presentation. She was prompted to visit ED next day when she woke to bilateral lower
extremity weakness and in ability to stand without assistance. Weakness is associated with numbness and tingling in the RUE/hand. Denies ever having symptoms like this before. Reports non-compliance with her home medications, including
antihypertensives- reportedly running out of meds a few months ago. CT/CTA head/neck noted no significant acute abn's. ED eval noted hypertension systolic 180s, afebrile, stable respiratory status on room air. Labs also noted Hyperlipidemia and
low normal B12 level. Following admission, patient was soon transferred to ICU due to concerns Hypertensive emergency systolic 200s, since improved with Cardene gtt. patient was seen by neurology, cardiology and siebel architect during hospitalization.
Patient was weaned off Cardene drip. Blood pressure stabilized with p.o. medication. MRI of the brain positive for ischemic infarct. Patient was continued on aspirin and Plavix. Patient stated she has history of CAD stents and does antiplatelet
agents were continued. Urinary drug screen was positive for amphetamines and THC. Blood pressure improved. Medications were streamlined. Creatinine was elevated which improved. Patient was eval by physical, occupational and speech therapy.
Patient was started on B12 supplementation. Cholesterol meds were adjusted. Patient be discharged to acute rehab.
Discharge Plan
-
Patient Disposition: Acute Rehab Facility
Discharge Diagnosis/Procedures: CVA right frontal lobe
Hypertensive emergency
Urine tox been positive for amphetamines and THC
Acute kidney injury
Hyperlipidemia
Leukocytosis
Condition: Fair
Diet: Low Cholesterol
Activity: With assistance and As tolerated
Driving Restrictions: Not until seen by your Dr
Activity Restrictions/Additional Instructions:
Patient should call for follow up appointment upon discharge with Dr Rose at [place].
Instructions: Stroke, Why taking your medicine as prescribed is important, BLOOD PRESSURE
Referrals:
Danny Ellington MD [Active, Neurology] - in three to four weeks
Macario Rg MD [Family Provider, [facility]] - in less than 1 week
Prescriptions:
New
atorvastatin 80 mg Tablet
80 mg PO QPM Qty: 30 0RF
metoprolol succinate 50 mg Tablet Extended Release 24 Hr
50 mg PO DAILY Qty: 30 0RF
cyanocobalamin (vitamin B-12) [Vitamin B-12] 500 mcg Tablet
1,000 mcg PO DAILY Qty: 30 0RF
baclofen 5 mg Tablet
5 mg PO TIDPRN PRN (Reason: muscle cramping/spasm) Qty: 30 0RF
Continued
aspirin 81 mg Tablet,Delayed Release (Dr/Ec)
81 mg PO DAILY
lisinopril 20 mg Tablet
20 mg PO DAILY
clopidogrel [Plavix] 75 mg Tablet
75 mg PO DAILY
amlodipine 10 mg Tablet
10 mg PO DAILY
Discontinued
metoprolol succinate [Toprol XL] 25 mg Tablet Extended Release 24 Hr
25 mg PO BID
rosuvastatin [Crestor] 40 mg Tablet
40 mg PO DAILY
Discharge Orders:
Discharge Patient (As Directed); Ordered 11/30/24
Ordered By: Chadwick Keating
Discharge Date and Time
Print Language: SAMI
[2024-11-30 13:10] VITALS: BP 128/87; PULSE 77; O2SAT 98
--- NOTE | 2024-11-30 13:44 | PTCARENOTE ---
Assumed care of pt from previous nurse. Pt denies pain. Pt NIH 2, pt for [facility] today. Pt call gale is within reach, pt rings francis. will cont to monitor.
[2024-11-30 14:06] VITALS: BP 132/83
--- NOTE | 2024-11-30 16:23 | PTCARENOTE ---
Pt iv removed, all belongings from room with pt. Report called to [facility], pt transferred to [facility] without issue.
== END 2024-11-30 16:24 | DRG 65 ==
LOC: 4 WEST ACU 18:39
PROVIDERS: Nurse Practitioner Gerontology; ADMITTING PHYSICIAN Internal Medicine; ATTENDING PHYSICIAN Hospitalist; CONSULT PHYSICIAN Internal Medicine; CONSULT PHYSICIAN Internal Medicine Cardiovascular Disease; CONSULT PHYSICIAN Psychiatry & Neurology Neurology; EMERGENCY PHYSICIAN Emergency Medicine; FAMILY PHYSICIAN Family Medicine
DX: I63.9 Cerebral infarction, unspecified (principal); I16.1 Hypertensive emergency; I25.10 Atherosclerotic heart disease of native coronary artery without angina pectoris; Z95.5 Presence of coronary angioplasty implant and graft; I10 Essential (primary) hypertension; Z91.148 Patient's other noncompliance with medication regimen for other reason; Z87.891 Personal history of nicotine dependence; Z82.0 Family history of epilepsy and other diseases of the nervous system; Z79.82 Long term (current) use of aspirin; Z79.899 Other long term (current) drug therapy; Z79.02 Long term (current) use of antithrombotics/antiplatelets; R29.701 NIHSS score 1; E66.9 Obesity, unspecified; Z68.33 Body mass index [BMI] 33.0-33.9, adult; E78.00 Pure hypercholesterolemia, unspecified; I25.2 Old myocardial infarction; G47.00 Insomnia, unspecified; R73.03 Prediabetes; K59.00 Constipation, unspecified
CPT/HCPCS: 70496; 70498; 70551; 71045; 80048; 80053; 80061; 80306; 80307; 81003; 81015; 82607; 82728; 82746; 82962; 83036; 83735; 83835; 83880; 84100; 84439; 84443; 84484; 85025; 85027; 85610; 85730; 87086; 87502; 87811; 93005; 93306; 93975; 97112; 97116; 97129; 97163; 97167; 97535; 99285; Q9967